=== PATIENT | female | born 1975 | race Caucasian/White ===

== ENCOUNTER 2018-01-25 09:30 | Outpatient (CLI) | payer BC | END 2018-01-25 09:31 | disposition home or self-care (01) | LOC: BICRAD 09:30 | PROVIDERS: ATTEND Family Medicine | DX: M25.552 Pain in left hip (principal); M25.562 Pain in left knee; R93.41 Abnormal radiologic findings on diagnostic imaging of renal pelvis, ureter, or bladder | CPT/HCPCS: 72170 ==

== ENCOUNTER 2018-05-04 23:39 | Inpatient (IN) | payer BC ==
[2018-05-05 00:23] LABS: #Eosinphils 0.1 thou/uL (0.0-0.7); #Lymphocytes 1.2 thou/uL (1.20-3.40); #Monocytes 0.5 thou/uL (0.11-0.59); #Neutrophils 7.2 thou/uL (1.40-6.50); %Basophils 0.3 % (0.0-1.0); %Eosinophils 1.1 % (0.0-10.0); %Lymphocytes 13.4 % (21.0-51.0); %Neutrophils 79.2 % (42.0-75.0); Hemoglobin 11.8 g/dL (12.0-16.0); Mean Corpuscular HGB CONC 32.5 g/dL (32.0-36.0); Mean Platelet Volume 10.7 fL (7.4-10.4); Platelet Count 171 thou/uL (130-400); RBC Distribution Width 15.5 % (11.5-14.5); Red Blood Cell (RBC) Count 4.36 mill/uL (4.20-5.40)
[2018-05-05 00:29] LABS: BHCG - Serum Negative (NEGATIVE); Pregs Control Background? CLEAR/WHITE (CLR/WHITE); Pregs Control Bar Appear? YES (CONTROL BAR)
[2018-05-05 00:41] LABS: ALT (SGPT) 9 U/L (8-55); AST (SGOT) 25 U/L (5-34); Albumin 3.7 g/dL (3.5-5.0); Alkaline Phosphatase 97 U/L (40-150); Anion Gap 17 mmol/L (10-20); BUN (Urea Nitrogen) 36 mg/dL (7.0-18.7); Bilirubin, Total 0.7 mg/dL (0.2-1.2); Calc. Creatinine Clearance 0 mL/min (70-130); Calcium 8.8 mg/dL (7.8-10.44); Carbon Dioxide 18 mmol/L (22-29); Chloride 101 mmol/L (98-107); Estimated GFR-MDRD 36; Globulin 3.1 g/dL (2.4-3.5); Glucose 128 mg/dL (70-105); Potassium 3.2 mmol/L (3.5-5.1); Protein, Total 6.8 g/dL (6.0-8.3); Sodium 133 mmol/L (136-145)
[2018-05-05 00:57] LABS: Thyroid Stimulating Hormone 1.4583 uIU/mL (0.35-4.94)
[2018-05-05 01:03] LABS: CKMB 11.2 ng/mL (0-6.6); Troponin I 0.525 ng/mL (< 0.028)
[2018-05-05] MEDS ORDERED: methylPREDNISolone Sod Succ/PF 125 MG/2 ML VIAL ONE (01:08)
[2018-05-05] MEDS ORDERED: Potassium Chloride 20 MEQ TAB ONE (01:08)
[2018-05-05] MEDS ORDERED: Enoxaparin Sodium 80 MG/0.8 ML SYRINGE ONE (01:08)
[2018-05-05 04:11] LABS: Troponin I 0.412 ng/mL (< 0.028)
[2018-05-05] MEDS ORDERED: Ondansetron HCl/PF 4 MG/2 ML Vial IVP PRN ×2 (04:30→05:13)
[2018-05-05] MEDS ORDERED: Acetaminophen 325 MG TAB PO PRN ×2 (04:30→05:13)
[2018-05-05] MEDS ORDERED: Ondansetron ODT 4 MG TAB SL PRN (04:30)
--- NOTE | 2018-05-05 04:36 | HP ---
PRIMARY CARE PHYSICIAN: Dr. Jorge Alberto Rosas. REASON FOR ADMISSION: Non-STEMI. HISTORY OF PRESENT ILLNESS: A 42-year-old female who has underlying history of ccfyoike-zl-ybcpkd mi tral regurgitation, chronic diastolic heart failure who came to emergency room with complaint of ches t pain and shortness of breath, which was started around 11:00 a.m. Patient woke up with chest disco mfort and shortness of breath. She was having nausea, vomiting, but denies any diarrhea. She denies any associated diaphoresis. She denies any lower extremity calf tenderness. She denies any chest p ain in relation with food, respiration. She denies any fever, chills, cough. She denies any constip ation, diarrhea, melena, or hematochezia. With these symptoms, she presented to emergency room. In the emergency room, she was relatively hypo tensive, hypoxic, tachycardic, and tachypneic. She was requiring nonrebreather oxygen. She had CT a ngiography, which was negative for pulmonary embolism. Her routine blood tests showed significantly elevated troponin and elevated BNP. EKG was negative for any ST elevation. Patient was given Loveno x 1 mg per kg, aspirin 324 mg. Patient was subsequently complaining in the emergency room with short ness of breath and that is why she was given Solu-Medrol and DuoNeb therapy. While patient's potassi um was low and that is why she was given potassium chloride. We are admitting this patient to teleme try floor. REVIEW OF SYSTEMS: Please see my HPI for pertinent positive and negative. All other review of syste ms reviewed and negative except as mentioned in the HPI: Constitutional: Weight loss or gain, abili ty to conduct usual activities. Skin: Rash, itching. Eyes: Double vision, pain. ENT/Mouth: Nose bleeding, neck stiffness, pain, tenderness. Cardiovascular: Palpitations, dyspnea on exertion, ort hopnea. Respiratory: Shortness of breath, wheezing, cough, hemoptysis, fever, or night sweats. Gas trointestinal: Poor appetite, abdominal pain, heartburn, nausea, vomiting, constipation, or diarrhea . Genitourinary: Urgency, frequency, dysuria, nocturia. Musculoskeletal: Pain, swelling. Neurolo gic/Psychiatric: Anxiety, depression. Allergy/Immunologic: Skin rash, bleeding tendency. ALLERGIES: CODEINE SULFATE. CURRENT HOME MEDICATIONS: Lisinopril 5 mg p.o. daily, Protonix 40 mg p.o. daily, Coreg 6.25 mg p.o. b.i.d., Prozac 40 mg p.o. daily. Suboxone 12/3 mg sublingual twice daily, Lyrica 200 mg 3 times milan y, Lasix 20 mg twice daily. PAST MEDICAL HISTORY: Chronic diastolic heart failure, qdwsdrfa-[id number] mitral regurgitation, hype rtension, peptic ulcer disease. PAST PSYCHIATRIC HISTORY: Anxiety, depression, bipolar disorder, history of inpatient psychiatric ad [facility] in 1999. PAST SURGICAL HISTORY: x2, tubal ligation, abdominal surgery for pyloric ulcer rupture. SOCIAL HISTORY: Patient has history of drug abuse in past. She smokes about 1 pack per day. She dr inks alcohol occasionally. Currently, she denies any illicit drug abuse. FAMILY HISTORY: Positive for coronary artery disease, diabetes among several family members. EMERGENCY ROOM COURSE: Patient is given Lovenox 1 mg per kg, Solu-Medrol 125 mg, aspirin 324 mg, pot assium chloride 40 mEq, DuoNeb therapy. PHYSICAL EXAMINATION: VITAL SIGNS: On arrival blood pressure 99/62, pulse 111, respiratory rate 22, temperature 97.4, satu ration 96% on nonrebreather, weight 84.8 kilograms. GENERAL: Patient is currently alert, awake, tachycardic, anxious. HEAD: Normocephalic, atraumatic. EYES: Pupils round, reactive to light. Extraocular muscle intact. ENT: Oropharynx within normal limits. Moist mucous membranes. No oral lesion, no pharyngeal erythe ma, no exudate. NECK: Supple. No JVD, no thyromegaly, no carotid bruit. LUNGS: Bilateral end expiratory wheezing heard, reduced air entry at bases. No obvious rales noted. CARDIAC: S1, S2 regular, tachycardia. Systolic murmur present at apex. ABDOMEN: Obesity present. Bowel sounds present, nontender, nondistended. No organomegaly, no mass, no suprapubic tenderness. BACK: Unremarkable. No CVA tenderness. EXTREMITIES: Upper extremity passive movement of all joints are normal. Lower extremities: Bilater al lower extremity edema noted. No calf tenderness. SKIN: No skin rash. HEMATOLOGICAL SYSTEM: No lymphadenopathy. PSYCHIATRIC: Anxious affect. NEUROLOGIC: Nonfocal examination. She moves all 4 limbs. Plantar bilateral flexor. SIGNIFICANT LABORATORY DATA: EKG showing sinus tachycardia, nonspecific ST-T changes. Chest x-ray s howing ground glass opacity in upper and lower lobes consistent with fibrosis/bronchiectasis. CBC: WBC 9.0, hemoglobin 11.8, platelet 171. D-dimer 1.26. BMP: Sodium 133, potassium 3.2, chlori de 101, carbon dioxide 18, BUN 36, creatinine 1.56, glucose 128, calcium 8.8. LFT: AST 25, ALT 9, a lkaline phosphatase is 97, albumin 3.7. test negative. TSH 1.45, CK-MB 11.2, troponin I 0 .525. BNP 876.2. ASSESSMENT AND PLAN: 1. Non-ST elevation myocardial infarction. 2. Acute on chronic diastolic congestive heart failure exacerbation. 3. Rugogeyu-zy-ytavqg mitral regurgitation based on previous echocardiography. 4. Tobacco abuse disorder. 5. Hypotension. 6. Acute respiratory failure with hypoxia. 7. Gastroesophageal reflux disease with a history of peptic ulcer disease. 8. Anxiety, depression, bipolar disorder. 9. History of polysubstance abuse. 10. Hyponatremia and hypokalemia. 11. Chronic kidney disease, stage 3. PLAN: 1. Full admission to telemetry floor. Monitor vitals. Blood pressure medication and Lasix as per h emodynamics. Cardiology will be consulted. We will obtain echocardiography. Patient is already giv en Lovenox 1 mg/kg in the emergency room. We will check urine drug screen. CT angiography was negat tyrell for PE. Patient does have low hyponatremia and hypokalemia, and that is why we will replace elec trolytes and will check magnesium level. We will monitor serial cardiac enzymes x3. Further decisio n and investigation will defer to Cardiology. 2. Deep venous thrombosis prophylaxis. Patient is already on Lovenox 1 mg per kg. 3. Gastrointestinal prophylaxis, Protonix 40 mg p.o. daily. CODE STATUS: Patient is FULL CODE. Patient does not have any surrogate decision maker. She makes h er own decision.
[2018-05-05 04:43] VITALS: BMI 29.9
[2018-05-05] MEDS ORDERED: Milk Of Magnesia 30 ML UDCUP PO PRN (05:13)
[2018-05-05] MEDS ORDERED: Zolpidem Tartrate 5 MG TAB PO PRN (05:13)
[2018-05-05] MEDS ORDERED: Loperamide HCl 2 MG CAP PO PRN (05:13)
[2018-05-05] MEDS ORDERED: Ondansetron ODT 4 MG TAB PO PRN (05:13)
[2018-05-05] MEDS ORDERED: Senokot 8.6 MG TAB PO PRN (05:13)
[2018-05-05] MEDS ORDERED: Mag-Al 1200 mg/1200 mg/30 ML UDCUP PO PRN (05:13)
[2018-05-05 06:25] LABS: Troponin I 0.289 ng/mL (< 0.028)
[2018-05-05] MEDS: Furosemide 20 MG/2 ML VIAL SLOW IVP SCH ×2 (06:35→15:03)
[2018-05-05] MEDS ORDERED: Furosemide 20 MG/2 ML VIAL SLOW IVP SCH (07:15)
[2018-05-05 07:23] LABS: Actual Bicarbonate (HCO3a) 23.6 mEq/L (22-28); O2 Tension (PaO2) 65.3 mmHg (80.0-100.0)
[2018-05-05 07:24] LABS: Calcium, Ionized 1.1 mmol/L (1.12-1.30); Puncture Site RRA
[2018-05-05] MEDS ORDERED: Nitroglycerin 2% Ointment 1 INCH/1 GM Packet ONE (07:36)
[2018-05-05] MEDS: Enoxaparin Sodium 80 MG/0.8 ML SYRINGE SC SCH ×2 (07:41→20:25)
[2018-05-05] MEDS: Aspirin 325 MG TAB PO SCH (07:41)
[2018-05-05] MEDS: Carvedilol 3.125 MG TAB PO SCH ×2 (07:42→20:24)
[2018-05-05] MEDS: Lisinopril 2.5 MG TAB PO SCH (07:43)
[2018-05-05] MEDS: FLUoxetine HCl 20 MG CAP PO SCH (07:43)
[2018-05-05] MEDS ORDERED: Nitroglycerin 2% Ointment 1 INCH/1 GM Packet TOP SCH (08:00)
[2018-05-05 08:01] LABS: Bilirubin Negative (Negative); Blood, Urine Trace (Negative); Clarity CLEAR (Clear); Glucose, Urine (Dipstick) Negative (Negative); Leukocyte Negative (Negative); Nitrite Negative (Negative); Protein, Urine (Dipstick) Negative (Neg-Trace); Specific Gravity, Urine 1.018 (1.002-1.036)
[2018-05-05 08:04] LABS: Bacteria/HPF None Seen HPF (None Seen); Hyaline Casts/LPF 0-3 HYALINE CAST LPF (0-3 Hyaline); RBC/HPF 0-3 HPF (0-3); Squamous Epithelial None Seen HPF (0-3); WBC/HPF None Seen HPF (0-3)
[2018-05-05 08:15] LABS: Amphetamine Not Detected (NotDetected); Barbiturates Screen Not Detected (NotDetected); Benzodiazepine Screen Not Detected (NotDetected); Cocaine Metabolite Screen Not Detected (NotDetected); Medtox Control Line Valid? VALID (VALID); Medtox Reader # READER 4; Methadone Not Detected (NotDetected); Methamphetamine Not Detected (NotDetected); Opiate Screen Not Detected (NotDetected); Oxycodone Screen Not Detected (NotDetected); Phencyclidine (PCP) Not Detected (NotDetected); THC/Cannabinoid Screen Not Detected (NotDetected); Tricyclic Screen Not Detected (NotDetected)
--- NOTE | 2018-05-05 10:23 | RAD ---
PORTABLE CHEST: Date: 05/05/18 HISTORY: Chest pain and shortness of breath. COMPARISON: 07/18/16. FINDINGS: Heart size appears borderline to slightly enlarged considering technique. Mild vascular engorgement i s noted. This would suggest an element of edema. IMPRESSION: Mild cardiomegaly with pulmonary vascular engorgement and slightly increased interstitial markings richards ggesting an element of edema. POS: MODESTA
[2018-05-05] MEDS ORDERED: ISOVUE-370 76%-LOCM 1 ML ONE (11:31)
--- NOTE | 2018-05-05 11:59 | CT ---
PRELIMINARY REPORT/[facility]/EMERGENCY AFTER HOURS PROCEDURE: EXAM: CT Angiography Chest With Intravenous Contrast CLINICAL HISTORY: 42 years old, female; Pain; Chest pain; Patient HX: F42 presents to ed C/O cp, SOB. Pt reports she wo ke up around 23: 00 w/ chest pain upon deep breath. Pt reports nausea and vomiting, denies diarrhea. Pt also C/O knee pain from fall x4 days [employer]. Pt reports HX of fibromyalgia, copd, chf, bipoolar depression. Pt reports she is not compliant w/ medications if she is feeling sick because it makes it worse. Pt reports she rarely takes her lyrica. Pt denies HX of pe or blood clots. TECHNIQUE: Axial computed tomographic angiography images of the chest with intravenous contrast using pulmonary embolism protocol. MIP reconstructed images were created and reviewed. COMPARISON: No relevant prior studies available. FINDINGS: Pulmonary arteries: No pulmonary embolism. Main pulmonary artery is enlarged, measuring 37 mm in maxi mal outer diameter at the level of the pulmonary artery bifurcation, compatible with pulmonary arteri al hypertension. Aorta: No acute findings. Lungs: Moderate bilateral upper and lower lobe groundglass opacities, without associated fibrosis or bronchiectasis. Pleural space: Normal. No significant effusion. No pneumothorax. Heart: Mild enlargement of the right atrial and right ventricular chambers, with straightening of the interventricular septum, compatible with elevated right heart pressures. Bones/joints: No acute fracture. No dislocation. Soft tissues: Normal. Lymph nodes: Several small lymph nodes within the mediastinum, likely reactive. Stomach and bowel: Surgical changes in the region of the gastroesophageal junction, possibly prior hi atal hernia repair. IMPRESSION: 1. No pulmonary embolism. 2. Moderate bilateral upper and lower lobe groundglass opacities, without associated fibrosis or bron chiectasis. Findings most compatible with multifocal pneumonitis, possibly from viral infection or po ssibly hypersensitivity pneumonitis. Recommend followup. 3. Incidental/non-acute findings are described above. Thank you for allowing us to participate in the care of your patient. Dictated and Authenticated by: Munir Wagner MD 05/05/2018 1:37 AM Central Time ([place] & [place]) FINAL REPORT CT ANGIO CHEST PERFORMED WITH IV CONTRAST ENHANCEMENT WITH 3D RECONSTRUCTIONS: Date: 05/05/18 HISTORY: Chest pain. Shortness of breath. COPD. History of CHF. FINDINGS: The lungs show a somewhat diffuse mosaic pattern with more of the ground-glass opacities being slight ly more central in location. There is no confluent infiltrative process. Small, vague area of nodular ity is seen in the right upper lobe measuring approximately 4.0 mm. There is no significant mediastinal or hilar adenopathy. Thoracic aorta is normal in caliber. Pulmonary arteries are dilated. There is good pulmonary artery o pacification. There is no CT evidence for pulmonary embolus. Visualized liver parenchyma shows no findings. Spleen appears slightly enlarged. It is incompletely v isualized. IMPRESSION: 1. Somewhat mosaic lung pattern which can have multiple etiologies. 2. Evidence of pulmonary artery hypertension. No evidence of pulmonary embolus. This report is in agreement with the preliminary report issued by [facility]. POS: NEELIMA
[2018-05-05] MEDS ORDERED: Potassium Chloride 20 MEQ TAB PO PRN (13:45)
--- NOTE | 2018-05-05 14:17 | PDOC.EVN ---
Event Note - Event Note Event Note: Patient was Not Toleratingf rebereathable mask, Now changed to Bipap. pt is transfered to IMCU, Pt is Alert and able to talk now. Called and updated Him about the paient in IMCU, Explained she will need Cardiology.
--- NOTE | 2018-05-05 14:28 | CON ---
DATE OF CONSULTATION: 05/05/2018 CONSULTING PHYSICIAN: Dr. Diego. REASON FOR CONSULTATION: [facility] admission. HISTORY OF PRESENT ILLNESS: Ms. Hopkins is a 42-year-old female, who was hospitalized last night wi th increasing shortness of breath and substernal chest pain. She acts as her own historian without l imitation. She says she has been short of breath for the last 2-3 days. She says she quit smoking a bout 2 weeks ago and that has helped her cough. She was placed on BiPAP for the shortness of breath. She was found to have elevated cardiac enzymes and has been diagnosed with non-Q-wave myocardial in [facility]. Results from echocardiogram is pending. She has diuresed with Lasix and says she is breat sanjeev better. PAST MEDICAL HISTORY: 1. Chronic diastolic heart failure. 2. Jehmqddw-et-gcsmpm mitral regurgitation. 3. Hypertension. 4. Peptic ulcer disease. PAST SURGICAL HISTORY: 1. . 2. Pyloric channel ulcer repair. PSYCHIATRIC HISTORY: Remarkable for anxiety, depression, bipolar disorder. SOCIAL HISTORY: One pack per day smoker, quit 2 weeks ago. Does not consume alcohol except on speci al occasions. Does not use illicit drugs. FAMILY MEDICAL HISTORY: Remarkable for coronary artery disease. MEDICATIONS: Prior to admission, she was taking ProAir metered-dose inhaler, lisinopril, Protonix, C oreg, Suboxone, Lyrica, Lasix. REVIEW OF SYSTEMS: Twelve-point review of systems, otherwise, negative. PHYSICAL EXAMINATION: VITAL SIGNS: Temperature 97.7, pulse 79, respirations 18, O2 sat 96% on BiPAP, blood pressure 100/57 . GENERAL: The patient is awake and alert. She has a strange affect when she is trying to communicate . HEENT EXAM: Unremarkable. NECK: No adenopathy or JVD. LUNGS: Inspiratory crackles both bases. No wheezing. CARDIAC: S1 and S2, regular. A 2/6 systolic murmur. ABDOMEN: Soft, nontender, nondistended. EXTREMITIES: No clubbing, cyanosis, or edema. LABORATORY DATA: Sodium 133, potassium 3.2, chloride 101, CO2 of 18, BUN 36, creatinine 1.5, glucose 128. BNP 876. Troponin 0.28. White blood cell count 9, hematocrit 36.2, platelet count 171. D-di marielle 1.26. Blood gas pH 7.40, pCO2 of 39, pO2 of 65. Chest x-ray shows cardiomegaly without mass, effusion, or infiltrate. CT of the chest showed no pulm onary emboli, but she did have bilateral faint infiltrates. ASSESSMENT: 1. Acute congestive heart failure - likely diastolic. 2. Acute hypoxic respiratory failure. 3. Past tobacco abuse. 4. Probable underlying chronic obstructive pulmonary disease. PLAN: 1. I agree with diuresis and p.r.n. BiPAP. 2. Cardiac consultation. 3. She is being anticoagulated due to her elevated troponin. 4. Potassium needs to be rechecked tonight and replaced if low.
[2018-05-05] MEDS: Buprenorphine 8mg/Naloxone 2mg per 1 FILM PO SCH ×2 (14:46→16:34)
[2018-05-05] MEDS: Atorvastatin Calcium 10 MG TAB PO SCH (20:24)
--- NOTE | 2018-05-06 01:40 | CON ---
DATE OF CONSULTATION: 05/06/2018 HISTORY OF PRESENT ILLNESS: Olimpia Hopkins is a 42-year-old white female who on echo in 2013, had iyhwlfsz-ky-lpgmwr mitral regurgitation and is labeled as having chronic diastolic heart failure, although I am not certain that she was seeing a crotch breaker here before. Over the last few days, she has had increased shortness of breath. She stopped smoking 1 week ago and this has not helped. She awoke around 11:00 a.m. yesterday morning with chest discomfort and shortness of breath. She stated that the pain was definitely pleuritic in nature and every time she tried to take a deep breath, she would have more chest pain. She came to the emergency room and was tachypneic, hypoxic, and hypotensive. She was given oxygen. She underwent CT angiography for pulmonary embolism, this was unremarkable. She had a mildly elevated troponin I and BNP and was started on Lovenox. She has been diuresed and states that her breathing has improved. PAST MEDICAL HISTORY: Hypertension, bipolar disorder, history of substance abuse, peptic ulcer disease. OPERATIONS: , tubal ligation, abdominal surgery for ruptured ulcer. MEDICATIONS: At home include albuterol 2 sprays b.i.d., BC powder one pack p.r.n., Suboxone sublingual b.i.d., carvedilol 6.25 b.i.d., lisinopril 5 mg daily, Protonix 40 daily, Lyrica 200 mg t.i.d. ALLERGIES: CODEINE. SOCIAL HISTORY: She smoked 1 pack a day, was apparently stopped 1 or 2 weeks ago. She occasionally drinks alcohol. She has had illicit drug use in the past , but her urine drug screen is negative at this time. FAMILY HISTORY: Positive for coronary artery disease. REVIEW OF SYSTEMS: Twelve-point review of systems is unremarkable. PHYSICAL EXAMINATION: VITAL SIGNS: Blood pressure 118/67, pulse of 108, sinus rhythm. HEENT: PERRL. NECK: Supple. LUNGS: Chest reveals expiratory wheezing. CARDIOVASCULAR: S1, S2 normal without any S3 or S4. There was a 1-2 holosystolic murmur at the apex. ABDOMEN: Obese. Normal bowel sounds without tenderness. EXTREMITIES: Revealed no clubbing, cyanosis, or edema. NEUROLOGIC: Grossly intact. SKIN: Warm and dry. LABORATORY DATA: EKG reveals sinus tachycardia, nonspecific T-wave changes. Hemoglobin 11.8, hematocrit 36.2, white count 9000, platelets 171,000. A pH of 7.40, pCO2 of 39.0, pO2 of 65.3. Sodium 133, potassium 3.2, chloride 101, carbon dioxide 18, BUN 36, creatinine 1.56. She has since received contrast for CTA after this lab. BNP 876.2 and troponin I 0.525. IMPRESSION: 1. Possible non-ST elevation myocardial infarction, although her pain was atypical in nature in that it was pleuritic. 2. Chronic obstructive pulmonary disease exacerbation. 3. Probable diastolic heart failure. 4. Renal insufficiency. 5. Hypertension. 6. Smoker until 1 week ago. 7. Positive family history. 8. History of peptic ulcer disease. 9. History of polysubstance abuse, although urine drug screen was negative on this admission. 10. Bipolar disorder. 11. Moderate MR in the past. PLAN: Echocardiogram has been performed but due to malfunction of the computer , cannot be read at this time. Her creatinine needs to be followed closely especially with contrast and ongoing diuresis. Once her breathing improved, consideration may need to be given to cardiac catheterization. It is of note that she states she was going to leave AMA, which she has done in the past. She took off the BiPAP, was getting up, getting ready to leave, and could not breathe and so did decide to stay; however, it is uncertain how long she will stay for evaluation. DOLORES
[2018-05-06 04:34] LABS: #Lymphocytes 0.8 thou/uL (1.20-3.40); #Monocytes 0.6 thou/uL (0.11-0.59); #Neutrophils 9.4 thou/uL (1.40-6.50); %Basophils 0.2 % (0.0-1.0); %Eosinophils 0.1 % (0.0-10.0); %Lymphocytes 7.5 % (21.0-51.0); %Monocytes 5.4 % (0.0-10.0); %Neutrophils 86.8 % (42.0-75.0); Hemoglobin 11.1 g/dL (12.0-16.0); Mean Corpuscular HGB CONC 32.9 g/dL (32.0-36.0); Mean Corpuscular Hemoglobin 27.2 pg (27.0-31.0); Mean Corpuscular Volume 82.8 fl (81.0-99.0); Mean Platelet Volume 10.9 fL (7.4-10.4); Platelet Count 154 thou/uL (130-400); RBC Distribution Width 15.8 % (11.5-14.5); Red Blood Cell (RBC) Count 4.07 mill/uL (4.20-5.40); White Blood Cell (WBC) Count 10.8 thou/uL (4.8-10.8)
[2018-05-06 04:48] LABS: ALT (SGPT) 7 U/L (8-55); AST (SGOT) 8 U/L (5-34); Albumin 3.5 g/dL (3.5-5.0); Alkaline Phosphatase 80 U/L (40-150); Anion Gap 14 mmol/L (10-20); BUN (Urea Nitrogen) 23 mg/dL (7.0-18.7); Bilirubin, Total 0.6 mg/dL (0.2-1.2); Calc. Creatinine Clearance 87 mL/min (70-130); Calcium 9.1 mg/dL (7.8-10.44); Carbon Dioxide 26 mmol/L (22-29); Cardiac Risk 5.4 (Less than 4.5); Chloride 99 mmol/L (98-107); Cholesterol 150 mg/dl (< 200 Desired); Estimated GFR-MDRD 53; Globulin 2.9 g/dL (2.4-3.5); Glucose 206 mg/dL (70-105); HDL Cholesterol 28 mg/dL (>60 Neg Risk); LDL Cholesterol, Calculated 94 mg/dL; Magnesium 1.8 mg/dL (1.6-2.6); Potassium 4.1 mmol/L (3.5-5.1); Protein, Total 6.4 g/dL (6.0-8.3); Sodium 135 mmol/L (136-145); Triglycerides 138 mg/dL (Less than 150); Uric Acid 6.6 mg/dL (2.6-6.0)
[2018-05-06] MEDS: Furosemide 20 MG/2 ML VIAL SLOW IVP SCH ×2 (05:51→14:24)
[2018-05-06] MEDS: Aspirin 325 MG TAB PO SCH (08:55)
[2018-05-06] MEDS: Carvedilol 3.125 MG TAB PO SCH ×2 (08:55→21:06)
[2018-05-06] MEDS: Lisinopril 2.5 MG TAB PO SCH (08:56)
[2018-05-06] MEDS: Enoxaparin Sodium 80 MG/0.8 ML SYRINGE SC SCH (08:56)
[2018-05-06] MEDS: FLUoxetine HCl 20 MG CAP PO SCH (08:56)
--- NOTE | 2018-05-06 09:06 | PRG ---
DATE OF SERVICE: 05/06/2018 The patient is doing better. She wants to be moved out of telemetry so her 12-year-old daughter can visit her. PHYSICAL EXAMINATION: VITAL SIGNS: On exam temperature is 98.8, pulse 86, respiration 16, O2 sat 94% on 4 liters, blood pr essure 108/61. HEENT: Unremarkable. NECK: No JVD. LUNGS: Clear without wheezing. She has few crackles in the bases. CARDIAC: S1 and S2 regular. ABDOMEN: Soft. EXTREMITIES: No edema. LABORATORY DATA: White blood cell count 10.8, hematocrit 33.7, platelet count 154. Sodium 135, pota ssium 4.1, chloride 99, CO2 26, BUN 23, creatinine 1.1, glucose 206. ASSESSMENT: 1. Acute congestive heart failure - likely diastolic. 2. Underlying chronic obstructive pulmonary disease. 3. Acute hypoxic respiratory failure. PLAN: 1. She can be moved out to the floor. 2. She will continue on nebulization treatments. 3. She should not need the BiPAP any longer. We will follow.
--- NOTE | 2018-05-06 10:31 | PDOC.PN ---
- Subjective Encounter Start Date: 05/06/18 Encounter Start Time: 08:30 Subjective: no chest pain or palp -: sob is better - Objective Resuscitation Status: Resuscitation Status FULL:Full Resuscitation MAR Reviewed: Yes Vital Signs & Weight: Vital Signs (12 hours) Temp Pulse Resp BP Pulse Ox 05/06/18 08:56 86 05/06/18 07:53 98.8 F 86 16 94 L 05/06/18 07:32 98.8 F 86 16 108/61 91 L 05/06/18 03:58 98.0 F 102 H 25 H 99/61 95 05/06/18 02:15 93 L 05/05/18 23:51 97.6 F 82 20 117/71 93 L Weight Weight 185 lb 6.4 oz I&O: 05/05/18 05/06/18 05/07/18 06:59 06:59 06:59 Intake Total 0 1220 Output Total 0 3175 Balance 0 -1955 Result Diagrams: 05/06/18 03:33 05/06/18 03:33 Phys Exam - Physical Examination HEENT: PERRLA, moist MMs Neck: no JVD, supple Respiratory: no rales, wheezing present Cardiovascular: RRR, no significant murmur Gastrointestinal: soft, non-tender, positive bowel sounds Musculoskeletal: no edema, pulses present Neurological: non-focal, moves all 4 limbs Psychiatric: A&O x 3 Dx/Plan (1) Acute exacerbation of CHF (congestive heart failure) Code(s): I50.9 - HEART FAILURE, UNSPECIFIED Status: Acute Qualifiers: Heart failure type: unspecified Qualified Code(s): I50.9 - Heart failure, unspecified (2) Demand ischemia of myocardium Code(s): I24.8 - OTHER FORMS OF ACUTE ISCHEMIC HEART DISEASE Status: Acute (3) Acute respiratory failure with hypoxia Code(s): J96.01 - ACUTE RESPIRATORY FAILURE WITH HYPOXIA Status: Acute (4) Mood disorder Code(s): F39 - UNSPECIFIED MOOD [AFFECTIVE] DISORDER Status: Chronic (5) on suboxone maintenance treatment Status: Chronic (6) Hypertension Code(s): I10 - ESSENTIAL (PRIMARY) HYPERTENSION Status: Chronic Qualifiers: Hypertension type: essential hypertension Qualified Code(s): I10 - Essential (primary) hypertension - Plan dc lovenox full dose -: for cath likely in am -: is off bipap now, feels better -: on asp, lipitor, coreg and iv lasix -: renal function is stable with creatinine around 1.1 this am * . Review of Systems - Medications/Allergies Allergies/Adverse Reactions: Allergies Allergy/AdvReac Type Severity Reaction Status Date / Time codeine Allergy Hives Verified 05/05/18 04:47 Medications: Current Medications Acetaminophen (Tylenol) 650 mg PO Q4H PRN PRN Reason: Headache/Fever or Pain Al Hydroxide/Mg Hydroxide (Maalox) 30 ml PO Q6H PRN PRN Reason: Heartburn or Indigestion Albuterol/Ipratropium (Duoneb) 3 ml NEB [id number] PRN PRN Reason: Dyspnea/Wheezing/SOB Aspirin (Aspirin) 325 mg PO DAILY [facility] Last Admin: 05/06/18 08:55 Dose: 325 mg Atorvastatin Calcium (Lipitor) 10 mg PO HS [facility] Last Admin: 05/05/18 20:24 Dose: 10 mg Buprenorphine/Naloxone (Suboxone) 1 film PO DAILY [facility] Last Admin: 05/05/18 16:34 Dose: 1 film Carvedilol (Coreg) 3.125 mg PO BID [facility] Last Admin: 05/06/18 08:55 Dose: 3.125 mg Enoxaparin Sodium (Lovenox) 80 mg SC 0900,2100 [facility] Last Admin: 05/06/18 08:56 Dose: 80 mg Fluoxetine HCl (Prozac) 40 mg PO DAILY [facility] Last Admin: 05/06/18 08:56 Dose: 40 mg Furosemide (Lasix) 20 mg SLOW IVP 0600,1400 [facility] Last Admin: 05/06/18 05:51 Dose: 20 mg Lisinopril (Zestril) 2.5 mg PO DAILY [facility] Last Admin: 05/06/18 08:56 Dose: 2.5 mg Loperamide HCl (Imodium) 2 mg PO PRN PRN PRN Reason: Diarrhea/Loose Stools Magnesium Hydroxide (Milk Of Magnesium) 30 ml PO DAILYPRN PRN PRN Reason: Constipation Ondansetron HCl (Zofran Odt) 4 mg PO Q6H PRN PRN Reason: Nausea/Vomiting Ondansetron HCl (Zofran) 4 mg IVP Q6H PRN PRN Reason: Nausea/Vomiting Pantoprazole Sodium (Protonix) 40 mg PO DAILY [facility] Last Admin: 05/06/18 08:56 Dose: 40 mg Senna (Senokot) 2 tab PO HSPRN PRN PRN Reason: Constipation Sodium Chloride (Flush - Normal Saline) 10 ml IVF Q12HR [facility] Last Admin: 05/06/18 08:56 Dose: 10 ml Sodium Chloride (Flush - Normal Saline) 10 ml IVF PRN PRN PRN Reason: Saline Flush Last Admin: 05/05/18 06:36 Dose: 10 ml Zolpidem Tartrate (Ambien) 5 mg PO HSPRN PRN PRN Reason: Insomnia
[2018-05-06] MEDS: Buprenorphine 8mg/Naloxone 2mg per 1 FILM PO SCH (11:45)
[2018-05-06] MEDS ORDERED: Enoxaparin Sodium 40 MG/0.4 ML SYRINGE SC SCH (21:00)
[2018-05-06] MEDS: Atorvastatin Calcium 10 MG TAB PO SCH (21:06)
[2018-05-07 05:52] LABS: Anion Gap 12 mmol/L (10-20); BUN (Urea Nitrogen) 20 mg/dL (7.0-18.7); Calc. Creatinine Clearance 113 mL/min (70-130); Calcium 9.1 mg/dL (7.8-10.44); Carbon Dioxide 29 mmol/L (22-29); Chloride 101 mmol/L (98-107); Estimated GFR-MDRD 72; Glucose 98 mg/dL (70-105); Potassium 4.1 mmol/L (3.5-5.1); Sodium 138 mmol/L (136-145)
[2018-05-07] MEDS: Furosemide 20 MG/2 ML VIAL SLOW IVP SCH ×2 (06:11→13:02)
--- NOTE | 2018-05-07 08:55 | PRG ---
DATE OF SERVICE: 05/07/2018 The patient is feeling better. She had no acute complaints. PHYSICAL EXAMINATION: VITAL SIGNS: Temperature 98.9, pulse 73, respirations 17, O2 sat 96% on 4 liters, blood pressure 111 /73. HEENT: Unremarkable. NECK: No JVD. LUNGS: Coarse breath sounds. CARDIAC: S1 and S2 regular. ABDOMEN: Soft. EXTREMITIES: No edema. LABORATORY DATA: Sodium 138, potassium 4.1, chloride 101, CO2 of 29, BUN 20, creatinine 0.8, glucose 98. ASSESSMENT: 1. Chronic obstructive pulmonary disease with exacerbation. 2. Diastolic cardiac dysfunction. 3. Acute hypoxic respiratory failure. PLAN: The patient needs to increase activity. Continue diuresis and nebulization treatments. She s hould be ready to go home soon.
[2018-05-07 09:49] VITALS: TEMP 98.7
[2018-05-07] MEDS: FLUoxetine HCl 20 MG CAP PO SCH (09:53)
[2018-05-07] MEDS: Carvedilol 3.125 MG TAB PO SCH (09:54)
[2018-05-07] MEDS: Aspirin 325 MG TAB PO SCH (09:54)
[2018-05-07] MEDS: Lisinopril 2.5 MG TAB PO SCH (10:04)
--- NOTE | 2018-05-07 11:21 | PQF ---
CLINICAL DOCUMENTATION IMPROVEMENT CLARIFICATION FORM: ICD-10 Updated PLEASE DO AN ADDENDUM TO THE PROGRESS NOTE WITH ANY DOCUMENTATION UPDATES OR ADDITIONS AND CARRY THROUGH TO DC SUMMARY. THANK YOU. DATE: 05/07 ATTN: DR. Sha NIX Please exercise your independent, professional judgment in responding to the clarification form. Clinical indicators are provided on the bottom of this form for your review. Please check appropriate box(s): AMI TYPE: [ ] NSTEMI [ ] AMI Type II [ x] Demand Ischemia [ ] Other diagnosis [ ] Unable to determine CLINICAL INDICATORS - SIGNS / SYMPTOMS / LABS ER PRESENTATION 05/05: PRESENTS FOR CP & SOB; TACHYCARDIAC; 2+ PITTING EDEMA TO B LE; EKG W/ST ELEVATION IN LEAD III ER PHYSICIAN DIAGNOSIS: NSTEMI, CHF EXACERBATION, COPD EXACERBATION PHYSICIAN H&P DOCUMENTATION 05/05: ASSESSMENT & PLAN: 1) NSTEMI; 2) A/C DIASTOLIC CHF EXACERBATION; 6) ACUTE HYPOXIC RESPIRATORY FAILURE CARDIOLOGY CONSULT 05/05: HX OF PRESENT ILLNESS: ...SHE HAD A MILDLY ELEVATED TROPONIN I & BNP & WAS STARTED ON LOVENOX. ASSESSMENT/PLAN: 1) POSSIBLE NSTEMI, ALTHOUGH HER PAIN WAS ATYPICAL IN NATURE IN THAT IT WAS PLEURITIC ATTENDING PN 05/06: DX/PLAN: 2) DEMAND ISCHEMIA OF MYOCARDIUM, ACUTE TROPONIN I: 0.525, 0.412, 0.289 (ON ADMIT, 05/05) RISKS: TOBACCO ABUSE A/C DIASTOLIC CHF ACUTE HYPOXIC RESPIRATORY FAILURE HTN TREATMENTS: CARDIOLOGY CONSULT (05/05) SUPPLEMENTAL OXYGEN (BIPAP WEANED TO NC) IV LASIX (05/05 - PRESENT) TELEMETRY MONITORING (05/05 - PRESENT) THANK YOU! Mamta (This form is maintained as a part of the permanent medical record) 2014 [email or web address]. All Rights Reserved Mamta Mackey RN, BSN [email or web address] Office: [phone] [facility]
--- NOTE | 2018-05-07 11:25 | PDOC.PN ---
- Subjective Encounter Start Date: 05/07/18 Encounter Start Time: 09:00 Subjective: no sob or palp -: breathing better -: is going for stress test 2nd portion this am - Objective Resuscitation Status: Resuscitation Status FULL:Full Resuscitation MAR Reviewed: Yes Vital Signs & Weight: Vital Signs (12 hours) Temp Pulse Resp BP Pulse Ox 05/07/18 09:50 18 93 L 05/07/18 09:49 98.7 F 74 22 H 102/65 71 L 05/07/18 03:33 98.9 F 73 17 111/73 96 05/07/18 02:00 94 L 05/07/18 00:00 97.4 F L 72 18 162/86 H 96 Weight Admit Weight 186 lb Weight 181 lb 8 oz I&O: 05/06/18 05/07/18 05/08/18 06:59 06:59 06:59 Intake Total 1220 480 Output Total 3175 500 Balance -1954 Result Diagrams: 05/06/18 03:33 05/07/18 05:13 Phys Exam - Physical Examination HEENT: PERRLA, moist MMs Neck: no JVD, supple Respiratory: no wheezing, no rales Cardiovascular: RRR, no significant murmur Gastrointestinal: soft, non-tender, positive bowel sounds Musculoskeletal: no edema, pulses present Neurological: non-focal, moves all 4 limbs Psychiatric: normal affect, A&O x 3 Dx/Plan (1) Acute exacerbation of CHF (congestive heart failure) Code(s): I50.9 - HEART FAILURE, UNSPECIFIED Status: Acute Qualifiers: Heart failure type: unspecified Qualified Code(s): I50.9 - Heart failure, unspecified (2) Demand ischemia of myocardium Code(s): I24.8 - OTHER FORMS OF ACUTE ISCHEMIC HEART DISEASE Status: Acute (3) Acute respiratory failure with hypoxia Code(s): J96.01 - ACUTE RESPIRATORY FAILURE WITH HYPOXIA Status: Resolved (4) Mood disorder Code(s): F39 - UNSPECIFIED MOOD [AFFECTIVE] DISORDER Status: Chronic (5) on suboxone maintenance treatment Status: Chronic (6) Hypertension Code(s): I10 - ESSENTIAL (PRIMARY) HYPERTENSION Status: Chronic Qualifiers: Hypertension type: essential hypertension Qualified Code(s): I10 - Essential (primary) hypertension - Plan await stress test results -: on asp, lipitor, coreg and lisinopril -: to amb as tolerated -: dc plan per cardio advice * .
[2018-05-07] MEDS: Buprenorphine 8mg/Naloxone 2mg per 1 FILM PO SCH (11:31)
--- NOTE | 2018-05-07 11:34 | PQF ---
CLINICAL DOCUMENTATION IMPROVEMENT CLARIFICATION FORM: ICD-10 Updated PLEASE DO AN ADDENDUM TO THE PROGRESS NOTE WITH ANY DOCUMENTATION UPDATES OR ADDITIONS AND CARRY THROUGH TO DC SUMMARY. THANK YOU. DATE: 05/07 ATTN: DR. Sha NIX Please exercise your independent, professional judgment in responding to the clarification form. Clinical indicators are provided on the bottom of this form for your review. Please check appropriate box(s): [ x ] Acute Renal Failure (ARF) / Acute Kidney Injury (AMY) [ ] Other Etiology or underlying conditions related to the diagnosis of ARF / AMY: [ ] Acute on Chronic Renal Failure please specify Stage of CKD ( see below) [ ] CKD without ARF/AMY please specify Stage of CKD [ ] Other diagnosis [ ] Unable to determine National Kidney Foundation Guidelines for CKD Staging Stage I Kidney damage with normal or increased GFR GFR > 90 Stage II Kidney damage with mildly decreased GFR GFR 60-89 Stage III Kidney damage with moderately decreased GFR GFR 30-59 Stage IV Kidney damage with severely decreased GFR GFR 16-29 Stage V Kidney failure GFR<15 ESRD End Stage Renal Disease On dialysis For continuity of documentation, please document condition throughout progress notes and discharge summary. Thank You. CLINICAL INDICATORS - SIGNS / SYMPTOMS / LABS BUN: 36 CR: 1.56 GFR: 36 (ADMIT, 05/05) 23 1.12 53 (05/06) 20 0.86 72 (05/07) RISK FACTORS: HTN CKD 3 HOME DIURETIC USE (LASIX BID) IV DIURETIC (LASIX 05/05 - PRESENT) TREATMENT: SERIAL BASMET FOR BUN/CR MONITORING THANK YOU! Maureen (This form is maintained as a part of the permanent medical record) 2014 [employer]. All Rights Reserved Mamta Mackey RN, BSN [email or web address] Office: [phone] [facility]ITAL[facility]
--- NOTE | 2018-05-07 14:41 | RAD ---
FOUR VIEWS RIGHT KNEE: Date: 05-07-18 History: Injury to right knee after a fall. FINDINGS: There is tricompartment osteophytosis involving the medial joint compartment. There is minimal narrow ing of the medial joint compartment. No fracture or dislocation is seen. No other osseous abnormality . IMPRESSION: Mild osteoarthritis without evidence of acute osseous abnormality involving the right knee. POS: [facility]
--- NOTE | 2018-05-07 14:43 | RAD ---
FOUR VIEWS LEFT KNEE: Date: 05-07-18 History: Left knee injury after a fall. FINDINGS: Mild osteophytes involving the medial joint compartment. No significant joint space narrowing is seen . There is no fracture or dislocation involving the left knee. IMPRESSION: No acute osseous abnormality left knee. POS: [facility]
[2018-05-07 17:20] VITALS: BP 121/71
--- NOTE | 2018-05-08 09:45 | NM ---
CARDIAC SPECT: CLINICAL HISTORY: 42-year-old female with chest pain. TECHNIQUE: A rest only myocardial perfusion scan was performed following the intravenous administration of 31 mC i technetium-99m sestamibi. The patient left AMA and the stress study was not performed. FINDINGS: Homogeneous tracer distribution is seen in the myocardial segments on the rest images. IMPRESSION: Normal myocardial perfusion at rest. POS: [facility]
== END 2018-05-07 17:22 | disposition left against medical advice (07) | DRG 291 ==
LOC: ERS 23:39 → 2NO 05-05 03:39 → IMCU/EMU 05-05 07:59 → 2NO 05-06 12:31
PROVIDERS: ADMIT Internal Medicine; ATTEND Internal Medicine
DX: I13.0 Hypertensive heart and chronic kidney disease with heart failure and stage 1 through stage 4 chronic kidney disease, or unspecified chronic kidney disease (principal); I50.33 Acute on chronic diastolic (congestive) heart failure; J96.01 Acute respiratory failure with hypoxia; E87.1 Hypo-osmolality and hyponatremia; J44.1 Chronic obstructive pulmonary disease with (acute) exacerbation; N17.9 Acute kidney failure, unspecified; E87.6 Hypokalemia; I24.8 Other forms of acute ischemic heart disease; I34.0 Nonrheumatic mitral (valve) insufficiency; N18.3 Chronic kidney disease, stage 3 (moderate); K21.9 Gastro-esophageal reflux disease without esophagitis; F31.9 Bipolar disorder, unspecified; F17.210 Nicotine dependence, cigarettes, uncomplicated; Z87.11 Personal history of peptic ulcer disease; Z88.5 Allergy status to narcotic agent
CPT/HCPCS: 36415; 71045; 71275; 78451; 80048; 80053; 80061; 80306; 81001; 82553; 82805; 83735; 83880; 84443; 84484; 84550; 84703; 85025; 85379; 93005; 93306; 93798; 94640; 94660; 94760; 96372; 96374; 99406; A4216; A9500; J1650; J1940; J2930; J7620; Q0162

== ENCOUNTER 2018-05-30 13:56 | Inpatient (IN) | payer BC ==
[2018-05-30 14:31] LABS: #Lymphocytes 0.7 thou/uL (1.20-3.40); #Monocytes 0.5 thou/uL (0.11-0.59); #Neutrophils 4.9 thou/uL (1.40-6.50); %Basophils 0.5 % (0.0-1.0); %Eosinophils 0.4 % (0.0-10.0); %Lymphocytes 11.8 % (21.0-51.0); %Monocytes 8.6 % (0.0-10.0); %Neutrophils 78.7 % (42.0-75.0); Hemoglobin 11.5 g/dL (12.0-16.0); Mean Corpuscular HGB CONC 32.5 g/dL (32.0-36.0); Mean Corpuscular Hemoglobin 26.7 pg (27.0-31.0); Mean Corpuscular Volume 82.3 fL (78.0-98.0); Mean Platelet Volume 10.3 fL (7.4-10.4); Platelet Count 164 thou/uL (130-400); RBC Distribution Width 17.4 % (11.5-14.5); Red Blood Cell (RBC) Count 4.31 mill/uL (4.20-5.40); White Blood Cell (WBC) Count 6.2 thou/uL (4.8-10.8)
[2018-05-30 14:44] LABS: INR-International Normal Ratio 1.6; PTT 35.4 SEC (22.9-36.1); Prothrombin Time 19.4 SEC (12.0-14.7)
[2018-05-30 14:52] LABS: Bilirubin Small (Negative); Blood, Urine Large (Negative); Clarity CLOUDY (Clear); Glucose, Urine (Dipstick) Negative (Negative); Leukocyte Trace (Negative); Nitrite Negative (Negative); Protein, Urine (Dipstick) 100 mg/dL (Neg-Trace); Specific Gravity, Urine 1.023 (1.002-1.036); Urobilinogen 0.2 mg/dL (0.2-1.0)
[2018-05-30 14:56] LABS: Bacteria/HPF None Seen HPF (None Seen); Squamous Epithelial 0-3 HPF (0-3)
[2018-05-30 14:58] LABS: ALT (SGPT) 66 U/L (8-55); AST (SGOT) 239 U/L (5-34); Albumin 3.7 g/dL (3.5-5.0); Alkaline Phosphatase 120 U/L (40-150); Anion Gap 21 mmol/L (10-20); BUN (Urea Nitrogen) 57 mg/dL (7.0-18.7); Bilirubin, Total 0.3 mg/dL (0.2-1.2); Calc. Creatinine Clearance 0 mL/min (70-130); Calcium 8.6 mg/dL (7.8-10.44); Carbon Dioxide 14 mmol/L (22-29); Chloride 103 mmol/L (98-107); Estimated GFR-MDRD 8; Globulin 2.7 g/dL (2.4-3.5); Glucose 130 mg/dL (70-105); Potassium 3.7 mmol/L (3.5-5.1); Protein, Total 6.4 g/dL (6.0-8.3); Sodium 134 mmol/L (136-145)
[2018-05-30 15:01] LABS: Pathc Cast-AUWi Flag 3.48 (0-2.49)
[2018-05-30 15:01] LABS: Troponin I 0.019 ng/mL (< 0.028)
[2018-05-30 15:04] LABS: Amphetamine Not Detected (NotDetected); Barbiturates Screen Not Detected (NotDetected); Benzodiazepine Screen Not Detected (NotDetected); Cocaine Metabolite Screen Not Detected (NotDetected); Medtox Control Line Valid? VALID (VALID); Medtox Reader # READER 1; Methadone Not Detected (NotDetected); Methamphetamine Not Detected (NotDetected); Opiate Screen Not Detected (NotDetected); Oxycodone Screen Not Detected (NotDetected); Phencyclidine (PCP) Not Detected (NotDetected); THC/Cannabinoid Screen Not Detected (NotDetected); Tricyclic Screen Not Detected (NotDetected)
[2018-05-30] MEDS ORDERED: Piperacillin/Tazobactam 4.5 GM VIAL ONE (15:04)
[2018-05-30 15:05] LABS: Hyaline Casts/LPF 0-3 HYALINE CAST LPF (0-3 Hyaline); Other Casts/LPF 0-3 COARSE GRAN LPF (0-3 Hyaline)
[2018-05-30 15:06] LABS: Crystals/HPF 2+ AMORPH URATES HPF (Negative); RBC/HPF 0-3 HPF (0-3)
[2018-05-30 15:23] LABS: CK (CPK) 9148 U/L (29-168); CKMB 326.2 ng/mL (0-6.6)
[2018-05-30 15:28] LABS: Actual Bicarbonate (HCO3a) 12.7 mEq/L (22-28); Base Excess (BEa) -13.4 mEq/L (-2.0 to +3.0); Hematocrit-ABG 28.9 % (36.0-47.0); Hemoglobin (Hb) 8.9 g/dL (12.0-16.0); O2 Tension (PaO2) 87.9 mmHg (80.0-100.0); pH, Arterial 7.25 (7.35-7.45)
[2018-05-30 15:29] LABS: Analyzer IN Cardio ER; Calcium, Ionized 1.1 mmol/L (1.12-1.30); Puncture Site L.R.
[2018-05-30] MEDS ORDERED: Piperacillin/Tazobactam 4.5 GM in Sodium Chloride 0.9% 100 ML IVPB SCH (15:30)
[2018-05-30] MEDS ORDERED: Succinylcholine Chloride 20 MG/ML 10 ml SYRINGE FS ONE (15:42)
[2018-05-30] MEDS ORDERED: EPINEPHrine 1 MG/10 ML Abboject SYRINGE ONE (15:43)
--- NOTE | 2018-05-30 15:45 | RAD ---
PORTABLE CHEST ONE VIEW: Date: 05-30-18 Time: 2:37 p.m. History: Syncope, dyspnea. FINDINGS/IMPRESSION: Comparison is made with exam of 05-05-18. The heart size is borderline. There is mild patchy infiltrate in the right lower lung. No pneumothora x, wojciech pulmonary edema, or large effusions are seen. POS: [facility]
[2018-05-30] MEDS ORDERED: HumaLOG 300 UNITS/3 ML VIAL SC PRN (16:20)
[2018-05-30] MEDS ORDERED: Piperacillin/Tazobactam 3.375 GM in Sodium Chloride 0.9% 100 ML IVPB SCH ×2 (16:45→18:00)
--- NOTE | 2018-05-30 16:48 | RAD ---
PORTABLE UPRIGHT CHEST ONE VIEW: 05/30/18 HISTORY: 43-year-old female with history of central line placement, followup dyspnea and multiple syncopal epi sodes. Monitor leads overlie the chest. Right jugular venous catheter in place with the tip in the superior vena cava. No pneumothorax. There is bilateral vascular congestion and interstitial and alveolar pare nchymal changes bilaterally progressive from the prior study raising concern for either that of bilat eral pneumonia or worsening pulmonary edema. IMPRESSION: Right jugular venous catheter in place without pneumothorax or other complication. Worsening bilatera l interstitial and alveolar parenchymal changes, evidence for worsening bilateral edema versus extens tyrell bilateral pneumonia. POS: [facility]
[2018-05-30 17:10] LABS: Anion Gap 16 mmol/L (10-20); BUN (Urea Nitrogen) 51 mg/dL (7.0-18.7); Calc. Creatinine Clearance 0 mL/min (70-130); Calcium 7.2 mg/dL (7.8-10.44); Carbon Dioxide 14 mmol/L (22-29); Chloride 108 mmol/L (98-107); Estimated GFR-MDRD 9; Glucose 104 mg/dL (70-105); Potassium 3.9 mmol/L (3.5-5.1); Sodium 134 mmol/L (136-145)
[2018-05-30 18:06] LABS: Troponin I 0.029 ng/mL (< 0.028)
[2018-05-30 18:20] LABS: HBSAg Index 0.19 S/CO (0-0.99); Hep B Core Total Ab Non-Reactive (NonReactive); Hep B Core Total Index 0.13 S/CO (0-0.79); Hep B Surf AB Non-Reactive (NonReactive); Hep B Surf Ag Non-Reactive S/CO (NonReactive); Hep C IgG Ab Non-Reactive (NonReactive); Hep C Index 0.51 S/CO (0-0.79)
[2018-05-30] MEDS: Sodium Chloride 0.9% 1,000 ML IV SCH (18:23)
[2018-05-30] MEDS ORDERED: Pantoprazole 40 MG VIAL IVP SCH (19:15)
[2018-05-30 19:27] LABS: HBSAB Concentration 0.16 mIU/mL; HBSAg Index 0.14 S/CO (0-0.99); Hep B Surf AB Non-Reactive (NonReactive); Hep B Surf Ag Non-Reactive S/CO (NonReactive)
[2018-05-30] MEDS: Heparin 5,000 UNITS/ML VIAL SC SCH (21:20)
[2018-05-30] MEDS: Buprenorphine 8mg/Naloxone 2mg per 1 FILM SL SCH (21:21)
[2018-05-30 21:33] LABS: Troponin I 0.041 ng/mL (< 0.028)
[2018-05-30] MEDS: Piperacillin/Tazobactam 2.25 GM in Sodium Chloride 0.9% 100 ML IVPB SCH (21:33)
[2018-05-30] MEDS: Norepinephrine 8 MG/0.9% NS 250 ML IVPB PRN (22:23)
[2018-05-31 00:03] LABS: Troponin I 0.045 ng/mL (< 0.028)
[2018-05-31] MEDS: Sodium Chloride 0.9% 1,000 ML IV SCH (00:23)
--- NOTE | 2018-05-31 00:50 | OP ---
PREOPERATIVE DIAGNOSES: Acute renal failure, fluid overload, dyspnea, hyperkalemia, need acute dialy sis access. POSTOPERATIVE DIAGNOSES: Acute renal failure, fluid overload, dyspnea, hyperkalemia, need acute dial ysis access. PROCEDURE: Placement of right femoral vein, Trialysis catheter. SURGEON: Coy Reece MD ANESTHESIA: 1% Xylocaine. PROCEDURE IN DETAIL: The patient is at the bedside, right groin was prepped with ChloraPrep, draped in routine fashion. Local anesthetic infiltrated into the skin and subcutaneous tissue about the ope rative site. Trocar catheter cannulated the femoral vein. J-wire threaded. Trocar catheter was rem nessa. Skin incised and enlarged sharply. Smaller and medium sized dilators placed over the J-wire i nto femoral vein and removed. Distal port of Trialysis catheter placed into femoral vein and secured with 3-0 nylon suture and J-wire removed. Each port aspirated blood and flushed with saline solutio n.
--- NOTE | 2018-05-31 01:13 | HP ---
DATE OF CONSULTATION: 05/30/2018 CHIEF COMPLAINT: Shortness of breath and falls. HISTORY OF PRESENT ILLNESS: Patient is a 43-year-old female who recently was discharged from the [facility] on 05/12/2018 who presented to the hospital with shortness of breath and falls. Most of the hi story was obtained from the records, some from patient; however, I am not sure how reliable that is a nd some from family members; however, they were not able to provide significant amount of history. Chaya sanchez does have a past medical history of congestive heart failure, diastolic dysfunction, history o f substance abuse. She is on Suboxone and has a history of iivldeho-da-onmwkw tricuspid regurgitatio n, and moderate pulmonary regurgitation who initially presented to the hospital by private car for sh ortness of breath and falls. I was told by the ER physician that patient has been falling significan tly at home and with possible sepsis due to pneumonia. Patient states that she has been having nause a, vomiting for the past 6 days and has not been able to tolerate food; however, has been drinking fl uids. However, the family whose njlwrz-rw-bgw and patient's daughter who was at the bedside and stat es that she has been falling significantly for the past 2 weeks and to the point that she has hit her head a couple of times. Patient apparently progressively got very short of breath today and worseni ng weakness which concerned the family so they brought her into the hospital for further evaluation. Patient's is not at the bedside. He is supposed to come in for more detailing on the histor y of this patient. PAST MEDICAL HISTORY: She has a history of substance abuse. She has a history of gbdyqsqv-io-nnagff mitral regurgitation, chronic diastolic heart failure, history of hypertension, peptic ulcer disease . PSYCHIATRIC HISTORY: She has history of anxiety, depression, bipolar disorder. PAST SURGICAL HISTORY: She has x2, tubal ligation, abdominal surgeries and pyloric ulcer r upture. SOCIAL HISTORY: She does have a history of drug abuse and currently is on Suboxone. I am unable to find out if she smokes; however, per records indicates that she smokes about a pack a day. No alcoho l has been noted on this. FAMILY HISTORY: Positive for coronary artery disease, diabetes among several family members. REVIEW OF SYSTEMS: Unable to obtain. PHYSICAL EXAMINATION: VITAL SIGNS: She was 98.4, patient was hypoxic and oxygen saturation 86 on nonrebreather. She is b reathing about 22 to 24 breaths per minute, blood pressure initially when she presented was 80/60. GENERAL: She is awake, oriented x1. She is following commands. HEENT: Normocephalic, atraumatic. No lymphadenopathy noted. Oral mucosa appears to be very dry. CARDIOVASCULAR: S1, S2 present. No murmurs, rubs, or gallops noted. She does have a systolic murmu r heard in her left sternal border. LUNGS: She has got significant crackles to bilateral lower bases. ABDOMEN: Soft, nontender. Bowel sounds are present x2. EXTREMITIES: She has no edema. Pulses are present x2. NEUROLOGIC: She has no focal abnormalities noted. She is able to move all her extremities. LABORATORY DATA: WBCs of 6.2, hemoglobin of 11.5, hematocrit of 35.4, platelets of 164. Chemistry: Sodium of 134, potassium is 3.9, her bicarbonate was 14, her BUN of 51, creatinine of 5.84. AST was elevated at 239, ALT of 66, and her CK was 9148. BNP was 168. Troponins were mildly elevated. Chest x-ray indicated possible right lower lobe patchy infiltrate; however, upon repeat chest x-ray i ndicates worsening pulmonary edema. ASSESSMENT AND PLAN: Patient is a 43-year-old female who presents to the hospital with shortness of breath, acute hypoxic respiratory failure. She is currently on a nonrebreather. Given the fact the patient has wbivlono-xf-ptkybg tricuspid regurgitation. There is a concern for worsening pulmonary e patrick. We will consult also Pulmonology and also consult Nephrology for starting dialysis. She did h ave repeat gases done which indicated pH of 7.25 however, her pO2 was 87. 1. Rhabdomyolysis not sure, most likely from falls. Her CK level was in the 9000s with acute kidney injury most likely from the rhabdomyolysis. Patient has been given a total of 3 liters,w e will sta rted on some normal saline at 125 mL an hour per protocol. Her repeat BMP has improved, but she is p utting out urine. Her urine output has been very muddy; however, she is putting out urine. Her crea tinine upon repeat from 5.84 went down to 5.01. 2. Anion gap metabolic acidosis most likely secondary to her underlying new acute kidney injury. 3. Acute kidney injury. This is most likely secondary to rhabdomyolysis prerenal versus acute tubul ar necrosis. We will continue IV hydration. Nephrology has been consulted for dialysis to avoid pos sible intubation. 4. History of qbmzturi-uo-smwzie tricuspid regurgitation. We will continue to monitor. Patient may need to be intubated. 5. Substance abuse. Patient takes about Suboxone, we will see the patient actually takes 12 mg subl ingual twice a daily. 6. Deep venous thrombosis prophylaxis. We will put patient on subcutaneous heparin.
[2018-05-31 05:20] LABS: Anion Gap 18 mmol/L (10-20); BUN (Urea Nitrogen) 22 mg/dL (7.0-18.7); Calc. Creatinine Clearance 42 mL/min (70-130); Carbon Dioxide 19 mmol/L (22-29); Chloride 107 mmol/L (98-107); Estimated GFR-MDRD 23; Glucose 112 mg/dL (70-105); Potassium 3.5 mmol/L (3.5-5.1); Sodium 140 mmol/L (136-145)
--- NOTE | 2018-05-31 05:26 | CON ---
DATE OF CONSULTATION: 05/30/2018 HISTORY OF PRESENT ILLNESS: A 43-year-old female who sees Dr. Rosas for routine care. A pparently for the last week or so, she is having difficulty breathing without associated chills or sw eats. She states she quit smoking 8 days ago. There is no substance abuse. She can barely walk 15 feet without getting markedly dyspneic. She was recently discharged from the hospital on 05/12/2018. At that time, a diagnosis of diastolic dysfunction with severe tricuspid regurgitation was made. Add itionally, respiratory failure, hypoxemia. DISCHARGE MEDICATIONS: Include aspirin 325, Lipitor 20, Coreg 6.25 twice a day, Prozac 40, lisinopri l5, Protonix 40, albuterol inhaler. PAST MEDICAL HISTORY: Diastolic dysfunction, mitral regurgitation, hypertension, peptic ulcer diseas e. PAST SURGICAL HISTORY: , surgery for peptic ulcer. SOCIAL HISTORY: As noted a pack a day, quit smoking 10 days ago. The last time when she was in the hospital, she says she quit smoking 2 weeks ago. ALLERGIES: None. REVIEW OF SYSTEMS: Otherwise, 10-point negative. PHYSICAL EXAMINATION: VITAL SIGNS: Sats 99% on 100% nonrebreather with some nasal O2 attached to it. She is on Levophed a nd blood pressure 120/80, pulse is 100, respiratory rate 20. CHEST: Extensive crackles bilaterally. There is no wheezing. CARDIAC: Normal S1, S2, no gallops. ABDOMEN: Soft. No masses. LABORATORY DATA: Lab shows white count 6000, H&H 11 and 34, platelet count is 164. INR 1.6. A pO2 is 87, pCO2 of 30% on 100%. Creatinine is 5.8, BUN is 57. CK is 326. BNP is 168. X-ray shows bilateral cephalization interstit ial infiltrates, cardiomegaly. IMPRESSION: 1. Respiratory failure. 2. Worsening renal failure. 3. Severe tricuspid regurgitation. 4. Metabolic encephalopathy. 5. Tobacco abuse. PLAN: She was placed on noninvasive ventilation. Otherwise, continue pressors. Antibiotics, adjust for renal failure. DVT prophylaxis and proton pump inhibitors. If condition gets worse, she may ne ed intubation. We will notify Dr. Tim. A 45-minute critical care time.
[2018-05-31 05:32] LABS: Band 2 % (5-11); Hemoglobin 10.7 g/dL (12.0-16.0); Hypochromia SLIGHT = 6-15 cells (100X) (0-5/hpf); Lymphocytes 3 % (21-51); MDiff Complete? YES; Mean Corpuscular HGB CONC 32.9 g/dL (32.0-36.0); Mean Corpuscular Hemoglobin 27.3 pg (27.0-31.0); Mean Corpuscular Volume 82.9 fL (78.0-98.0); Mean Platelet Volume 10.1 fL (7.4-10.4); Monocytes 2 % (0-10); Neutrophil 93 % (42-75); PLT Morphology Comment Appears Adequate; Platelet Count 173 thou/uL (130-400); RBC Distribution Width 17.1 % (11.5-14.5); Red Blood Cell (RBC) Count 3.91 mill/uL (4.20-5.40); White Blood Cell (WBC) Count 6.2 thou/uL (4.8-10.8)
[2018-05-31] MEDS: Piperacillin/Tazobactam 2.25 GM in Sodium Chloride 0.9% 100 ML IVPB SCH (06:08)
[2018-05-31] MEDS: Pantoprazole 40 MG VIAL IVP SCH ×2 (08:29→21:04)
[2018-05-31] MEDS: FLUoxetine HCl 20 MG CAP PO SCH (08:29)
[2018-05-31] MEDS: Atorvastatin Calcium 20 MG TAB PO SCH (08:29)
[2018-05-31] MEDS: Heparin 5,000 UNITS/ML VIAL SC SCH ×2 (08:30→21:04)
[2018-05-31] MEDS: Buprenorphine 8mg/Naloxone 2mg per 1 FILM SL SCH ×2 (08:33→21:21)
--- NOTE | 2018-05-31 08:37 | PRG ---
DATE OF SERVICE: 05/31/2018 This is 35 minutes critical care time. Events from yesterday were reviewed. This patient presented to the hospital with rhabdomyolysis that was felt to be most likely from falls and from poor oral intake. She necessitated dialysis last nig ht for fluid retention and electrolyte abnormalities. She was on BiPAP when I saw her this morning, she appeared to be breathing well, so I took it off and placed on nasal cannula. She is complaining of a dry mouth, but otherwise seems to be doing okay. PHYSICAL EXAMINATION: VITAL SIGNS: Temperature 98.5, pulse 84, blood pressure 104/48, O2 sat 100% on the BiPAP, it was abo ut 92% on 4 liters nasal cannula. Total intake for the last 24 hours 1957, output is 1085 +2400 matthew radha by hemodialysis. HEENT: Pupils react. Sclerae icteric. Oropharynx clear. NECK: Without adenopathy or JVD. LUNGS: She has a few fine crackles bilaterally. CARDIOVASCULAR: S1, S2 regular, a 2/6 murmur. ABDOMEN: Soft, obese, nontender, nondistended. EXTREMITIES: No clubbing, cyanosis, or edema. LABORATORY DATA: Sodium 140, potassium 3.5, chloride 107, CO2 19, BUN 22, creatinine 2.3, glucose 11 2. Troponin 0.045. CK has not been repeated yet, but the initial level on admission was 9148. Whit e blood count 6.2, hematocrit 32.5, platelet count 173. ASSESSMENT: 1. Rhabdomyolysis. 2. Acute pulmonary edema that has improved after hemodialysis yesterday. 3. Acute respiratory failure requiring intermittent BiPAP. 4. Substance abuse. PLAN: 1. We need to trend her CK levels. I will order one today and tomorrow and Sunday. 2. Change IV fluids to half normal saline with bicarbonate. Alkalinize urine and hopefully conversi on nonoliguric situation. 3. BiPAP off as tolerated. 4. Follow electrolytes. 5. Heparin for DVT prophylaxis. 6. Protonix for GI prophylaxis. 7. Decrease steroid dose as I do not think she is currently in a chronic obstructive pulmonary disea se exacerbation.
[2018-05-31] MEDS: Sodium Bicarbonate 70 MEQ in Sodium Chloride 0.45% 1,000 ML IV SCH ×2 (08:46→21:22)
--- NOTE | 2018-05-31 09:09 | RAD ---
AP VIEW OF THE CHEST: INDICATION: Daily CCU examination and intubation. COMPARISON: Prior study dated 05/30/18. FINDINGS: Right IJ central venous catheter is stable. Cardiomegaly persists. Perihilar opacities are slightly improved. NO pleural effusion or pneumothorax is evident. IMPRESSION: Improved perihilar opacitIES. POS: [facility]
--- NOTE | 2018-05-31 09:47 | CON ---
DATE OF CONSULTATION: 05/30/2018 CONSULTING PHYSICIAN: Jessica Posey MD REASON FOR CONSULTATION: Acute kidney injury and acidosis. REASON FOR ADMISSION: Shortness of breath. HISTORY OF PRESENT ILLNESS: This is a 43-year-old female with history of mitral regurgitation, CHF, hypertension, CKD, came to the hospital with shortness of breath and was found to have acidosis with acute kidney injury. Her creatinine was 0.8 on discharge, 2 weeks back on 05/07/2018, and this morni ng it was found at 5.84. Patient is very lethargic, very short of breath, and she was a non-rebreath er when I saw her, she was seen in the ER. No fever or chills. No nausea, vomiting, diarrhea. PAST MEDICAL HISTORY: Positive for congestive heart failure, diastolic heart failure, zvtwveoj-yb-xv sharona mitral regurgitation, hypertension, peptic ulcer disease. PAST SURGICAL HISTORY: , tubal ligation, peptic ulcer rupture and repair. HOME MEDICATIONS: Include Prozac, Lipitor, Protonix, Zestril, carvedilol, aspirin. ALLERGIES: CODEINE. SOCIAL HISTORY: Patient has a history of drug abuse in the past, smokes 1 pack per day, and drinks a lcohol occasionally. FAMILY HISTORY: Positive for heart disease. REVIEW OF SYSTEMS: Review of systems could not be obtained due to not able to answer questions liv foley, as she is on non-rebreather. PHYSICAL EXAMINATION: GENERAL: This is a well-built female in moderate distress. VITAL SIGNS: Temperature 98.1, pulse 73, respiratory rate 12, blood pressure 120/59. HEENT: Atraumatic, normocephalic. NECK: Supple. CARDIOVASCULAR: S1 and S2 heard. RESPIRATORY: Bilateral crackles. GASTROINTESTINAL: Abdomen is soft. MUSCULOSKELETAL: 1+ edema. DERMATOLOGIC: No skin rash. NEUROLOGICAL: Somnolent. LABORATORY DATA: Potassium is 3.9, BUN is 51, creatinine is 5.01. Bicarbonate is 14, pH is 7.25. ASSESSMENT AND PLAN: 1. Acute kidney injury on chronic kidney disease. The patient does have severe acidosis with fluid overload. Plan is to start on dialysis. 2. Metabolic acidosis, rule out lactic acidosis. 3. Elevated creatine kinase level. IV fluids if tolerated. 4. Anemia, mild. 5. Edema with fluid overload. Remove fluid 6. Hypertension, stable. Plan is to start on dialysis, emergent dialysis. Family agreed and we will have emergent dialysis, f luid removal and for severe metabolic acidosis. Plan discussed with Dr. Gardner and Dr. Posey. We madeline l follow. Thank you for the consult.
--- NOTE | 2018-05-31 11:56 | PQF ---
CLINICAL DOCUMENTATION IMPROVEMENT CLARIFICATION FORM: ICD-10 Updated PLEASE DO AN ADDENDUM TO THE PROGRESS NOTE WITH ANY DOCUMENTATION UPDATES OR ADDITIONS AND CARRY THROUGH TO DC SUMMARY. THANK YOU. DATE: 05/31/18 ATTN : DR. HINDS Please exercise your independent, professional judgment in responding to the clarification form. Clinical indicators are provided on the bottom of this form for your review Please check appropriate box(es): [ x] Sepsis due to: (Pna, UTI, gangrenous gall bladder, etc.) Due to: [ ] Device (please specify) [ ] Implant [ ] Graft [ ] Infusion [ ] SIRS due to non-infectious process (please specify etiology) [ ] with organ dysfunction [ ] without organ dysfunction [ ] Severe sepsis with acute organ dysfunction of: (Examples: respiratory failure, encephalopathy, acute kidney failure, other) [ ] Septic Shock [ ] Localized infection without sepsis [ ] Other diagnosis [ ] Unable to determine In addition, please specify: Present on Admission (POA): [ x ] Yes [ ] No [ ] Unable to determine For continuity of documentation, please document condition throughout progress notes and discharge summary. Thank You. CLINICAL INDICATORS - SIGNS / SYMPTOMS / LABS H&P: "I WAS TOLD BY THE ER PHYSICIAN THAT PATIENT HAS BEEN FALLING SIGNIFICANTLY AT HOME AND WITH POSSIBLE SEPSIS DUE TO PNEUMONIA." BP 65/52 RR 25 PULSE 108 RISKS: PNEUMONIA TREATMENT: IV ZOSYN (ER-PRESENT) IV FLUIDS (ER-PRESENT) LEVOPHED (ER-PRESENT) IV VANCOMYCIN (ER) CRITICAL CARE MONITORING (This form is maintained as a part of the permanent medical record) [employer] 2015 [employer]. All Rights Reserved SANDHYA [email or web address] Office: [phone] [facility] CENTERJanes
--- NOTE | 2018-05-31 12:10 | PRG ---
DATE OF SERVICE: 05/31/2018 SUBJECTIVE: Patient was seen and examined at bedside and overnight events noted. Patient denies any shortness of breath or chest pain or palpitation. No history of nausea or vomiting or diarrhea or f ever or chills or cramps. OBJECTIVE: GENERAL: This is a well-built female in no apparent distress. VITAL SIGNS: Temperature 98.3, pulse 82, respiratory 18, blood pressure 109/57. HEENT: Atraumatic, normocephalic. Oral mucosa is moist. NECK: Supple. CARDIOVASCULAR: S1, S2 heard. Rate and rhythm regular. RESPIRATORY: Clear to auscultation. GASTROINTESTINAL: Abdomen is soft. MUSCULOSKELETAL: No tenderness, no edema. DERMATOLOGIC: No skin rash. NEUROLOGIC: Alert and awake and oriented x3. No focal neurologic deficits. Moving all the extremit ies. PSYCHIATRIC: Mood and affect normal. LABORATORY DATA: Potassium 3.5, BUN 22, creatinine is 2.3. ASSESSMENT AND PLAN: 1. Acute kidney injury on chronic kidney stage 3. She had dialysis yesterday for severe acidosis an d fluid overload. 2. Fluid overload. 3. Metabolic acidosis. 4. Anemia. 5. Edema with fluid overload. 6. Hypertension. We will continue on dialysis if tolerated. We will follow.
[2018-05-31] MEDS: Norepinephrine 8 MG/0.9% NS 250 ML IVPB PRN (13:19)
[2018-05-31] MEDS: Piperacillin/Tazobactam 2.25 GM, Admixture Fee 1 EACH in Sodium Chloride 0.9% 100 ML IVPB SCH ×2 (13:34→21:02)
--- NOTE | 2018-05-31 17:30 | PDOC.PN ---
- Subjective Encounter Start Date: 05/31/18 Encounter Start Time: 15:00 Patient is seen today, lethargic and SOb. has worseing mental status from metabolic encephaloapthy - Objective MAR Reviewed: Yes Vital Signs & Weight: Vital Signs (12 hours) Temp Pulse Resp Pulse Ox 05/31/18 16:39 91 L 05/31/18 15:49 98.5 F 05/31/18 14:10 79 19 96 05/31/18 12:00 98.3 F 05/31/18 11:19 79 27 H 94 L 05/31/18 10:50 98.3 F 05/31/18 09:51 85 37 H 95 05/31/18 08:21 94 L 05/31/18 08:18 94 19 94 L 05/31/18 07:06 98.5 F 79 22 H 100 05/31/18 07:00 98.5 F Weight Weight 190 lb 11.198 oz Most Recent Monitor Data Heart Rate from ECG 94 NIBP 119/55 NIBP BP-Mean 86 Respiration from ECG 19 SpO2 85 I&O: 05/30/18 05/31/18 06/01/18 06:59 06:59 06:59 Intake Total 1958 1277 Output Total 1085 525 Balance 873 752 Result Diagrams: 06/01/18 04:38 06/01/18 04:38 Radiology Reviewed by me: Yes EKG Reviewed by me: Yes Phys Exam - Physical Examination HEENT: PERRLA, moist MMs Neck: no nodes, no JVD Respiratory: no wheezing, no rales Cardiovascular: RRR, no significant murmur Gastrointestinal: soft, non-tender Musculoskeletal: no edema, pulses present Neurological: non-focal, normal sensation Lymphatic: no nodes Dx/Plan (1) Acute exacerbation of CHF (congestive heart failure) Code(s): I50.9 - HEART FAILURE, UNSPECIFIED Status: Acute Qualifiers: Heart failure type: unspecified Qualified Code(s): I50.9 - Heart failure, unspecified Comment: Pt has New onset Renal Fauilyure on HD now, Dr. linares is following with HD daily. Elevated BNP. pending echo. (2) Altered mental status Code(s): R41.82 - ALTERED MENTAL STATUS, UNSPECIFIED Status: Acute Comment: Likely Multifactorial, currently emtabolic in nature, may need to r/o Delieruium from MD or Stroke. Will clsoley monitor for improvement with HD. (3) Anemia Code(s): D64.9 - ANEMIA, UNSPECIFIED Status: Acute Comment: Likely from Chronci kidney disease. (4) Demand ischemia of myocardium Code(s): I24.8 - OTHER FORMS OF ACUTE ISCHEMIC HEART DISEASE Status: Acute Comment: Likely Renal, Will get Echo and get cardioogy if needed. pt deneuis any chest pain. (5) Hypertension Code(s): I10 - ESSENTIAL (PRIMARY) HYPERTENSION Status: Chronic Qualifiers: Hypertension type: essential hypertension Qualified Code(s): I10 - Essential (primary) hypertension Comment: Low , will hold home meds. (6) Acute respiratory failure with hypoxia Code(s): J96.01 - ACUTE RESPIRATORY FAILURE WITH HYPOXIA Status: Resolved Comment: On rebreather mask in and out, Pulmonary following, likely from Pulmonary edema. Will wait for Echo. (7) Rhabdomyolysis Code(s): M62.82 - RHABDOMYOLYSIS Status: Acute Comment: CPK trending down, Reasons not known. Continue with Renal recommedations,. - Plan cont current plan of care, PT/OT, health and social care teacher, incentive spirometry * . Review of Systems - Review of Systems Eyes: negative: Pain, Vision Change, Conjunctivae Inflammation, Eyelid Inflammation, Redness, Other ENT: negative: Ear Pain, Ear Discharge, Nose Pain, Nose Discharge, Nose Congestion, Mouth Pain, Mouth Swelling, Throat Pain, Throat Swelling, Other Respiratory: Cough, Shortness of Breath, Wheezing. negative: Dry, Hemoptysis, SOB with Excertion, Pleuritic Pain, Sputum Genitourinary: negative: Dysuria, Frequency, Incontinence, Hematuria, Retention , Other Musculoskeletal: negative: Neck Pain, Shoulder Pain, Arm Pain, Back Pain, Hand Pain, Leg Pain, Foot Pain, Other - Medications/Allergies Allergies/Adverse Reactions: Allergies Allergy/AdvReac Type Severity Reaction Status Date / Time codeine Allergy Hives Verified 05/05/18 04:47 Medications: Current Medications Albuterol/Ipratropium (Duoneb) 3 ml NEB [id number] PRN PRN Reason: SOB &/or Wheezing Albuterol/Ipratropium (Duoneb) 3 ml NEB [id number] [facility] Last Admin: 06/01/18 06:51 Dose: 3 ml Atorvastatin Calcium (Lipitor) 20 mg PO DAILY [facility] Last Admin: 06/01/18 09:23 Dose: 20 mg Buprenorphine/Naloxone (Suboxone) 1.5 film SL BID [facility] Last Admin: 05/31/18 21:21 Dose: 1.5 film Fluoxetine HCl (Prozac) 40 mg PO DAILY [facility] Last Admin: 06/01/18 09:23 Dose: 40 mg Heparin Sodium (Porcine) (Heparin) 5,000 units SC BID [facility] Last Admin: 06/01/18 09:22 Dose: 5,000 units Piperacillin Sod/Tazobactam Sod 2.25 gm/ Miscellaneous Medication 1 each/ Sodium Chloride 100 mls @ 200 mls/hr IVPB Q8HR [facility] Last Admin: 06/01/18 06:10 Dose: 100 mls Sodium Bicarbonate 70 meq/ (Sodium Chloride) 1,070 mls @ 60 mls/hr IV .[id number] [facility] Last Admin: 06/01/18 09:14 Dose: Not Given Insulin Human Lispro (Humalog) 0 units SC .MILD SLIDING SCALE PRN PRN Reason: Mild Correctional Scale Methylprednisolone Sodium Succinate (Solu-Medrol) 20 mg IVP Q12HR [facility] Last Admin: 06/01/18 09:22 Dose: 20 mg Miscellaneous Medication (Pharmacy To Dose) 1 each IVPB ONE PRN PRN Reason: Pharmacy to dose Stop: 06/29/18 16:40 Pantoprazole Sodium (Protonix) 40 mg IVP Q12HR [facility] Last Admin: 06/01/18 09:22 Dose: 40 mg Potassium Chloride (K-Dur) 40 meq PO ONE [facility] Stop: 06/01/18 10:00 Last Admin: 06/01/18 09:22 Dose: 40 meq Sodium Chloride (Flush - Normal Saline) 10 ml IVF Q12HR [facility] Last Admin: 06/01/18 09:23 Dose: 10 ml Sodium Chloride (Flush - Normal Saline) 10 ml IVF PRN PRN PRN Reason: Saline Flush
[2018-06-01 04:57] LABS: Anion Gap 10 mmol/L (10-20); BUN (Urea Nitrogen) 20 mg/dL (7.0-18.7); Band 8 % (5-11); CK (CPK) 1226 U/L (29-168); Calc. Creatinine Clearance 56 mL/min (70-130); Calcium 8.1 mg/dL (7.8-10.44); Carbon Dioxide 26 mmol/L (22-29); Chloride 104 mmol/L (98-107); Estimated GFR-MDRD 31; Glucose 129 mg/dL (70-105); Hemoglobin 8.9 g/dL (12.0-16.0); Lymphocytes 5 % (21-51); MDiff Complete? YES; Mean Corpuscular HGB CONC 32.1 g/dL (32.0-36.0); Mean Corpuscular Volume 84.2 fL (78.0-98.0); Mean Platelet Volume 9.7 fL (7.4-10.4); Monocytes 1 % (0-10); Neutrophil 86 % (42-75); PLT Morphology Comment Appears Decreased; Platelet Count 114 thou/uL (130-400); Potassium 3.2 mmol/L (3.5-5.1); RBC Distribution Width 17.1 % (11.5-14.5); Sodium 137 mmol/L (136-145); White Blood Cell (WBC) Count 4.5 thou/uL (4.8-10.8)
[2018-06-01] MEDS: Piperacillin/Tazobactam 2.25 GM, Admixture Fee 1 EACH in Sodium Chloride 0.9% 100 ML IVPB SCH ×3 (06:10→21:52)
--- NOTE | 2018-06-01 08:09 | RAD ---
PORTABLE CHEST: Date: 06/01/18 PROVIDED CLINICAL HISTORY: Respiratory insufficiency. FINDINGS: Comparison with 05/31/18. Diffuse bilateral air space disease is demonstrated, which appears worsened with respect to the prior study. Cardiac and mediastinal silhouette is not definitely changed in appearance. Right-sided centr al line is in similar position. The supine nature of the study is not sensitive for detection of pleu ral fluid or pneumothorax without gross evidence for such. IMPRESSION: Worsened bilateral air space disease. POS: MODESTAH
[2018-06-01] MEDS ORDERED: Potassium Chloride 20 MEQ TAB PO SCH (08:15)
--- NOTE | 2018-06-01 08:22 | PRG ---
DATE OF SERVICE: 06/01/2018 Thirty-five minutes critical care time. SUBJECTIVE: The patient had to use BiPAP last night. It was just taken off this morning. She says she does not feel much better. OBJECTIVE: VITAL SIGNS: On exam, temperature is 98.4, pulse 70, blood pressure 117/68. A 24-hour intake 36/53 and output 1220. HEENT: Unremarkable. NECK: No JVD. LUNGS: Coarse breath sounds bilaterally. CARDIOVASCULAR: S1 and S2 regular. ABDOMEN: Soft. EXTREMITIES: Trace edema throughout. LABORATORY DATA: Sodium 137, potassium 3.2, chloride 104, CO2 of 26, BUN 20, creatinine 1.7, glucose 129. CPK 1226, down from admission CPK of 9148. White blood count 4.5, hematocrit 27.7, platelet c ount 114. ASSESSMENT: 1. Rhabdomyolysis. 2. Pulmonary edema. 3. Underlying chronic obstructive pulmonary disease. 4. Substance abuse. 5. Acute respiratory failure, requiring BiPAP. PLAN: 1. Try off BiPAP and see if she tolerates. 2. She looks as if she is becoming fluid overloaded, so I will try to decrease her IV fluids. Repla ce potassium.
[2018-06-01] MEDS: Sodium Bicarbonate 70 MEQ in Sodium Chloride 0.45% 1,000 ML IV SCH ×2 (09:14→12:50)
[2018-06-01] MEDS: Pantoprazole 40 MG VIAL IVP SCH ×2 (09:22→21:53)
[2018-06-01] MEDS: Heparin 5,000 UNITS/ML VIAL SC SCH ×2 (09:22→21:52)
[2018-06-01] MEDS: Atorvastatin Calcium 20 MG TAB PO SCH (09:23)
[2018-06-01] MEDS: FLUoxetine HCl 20 MG CAP PO SCH (09:23)
[2018-06-01] MEDS: Buprenorphine 8mg/Naloxone 2mg per 1 FILM SL SCH ×2 (09:57→22:01)
--- NOTE | 2018-06-01 14:54 | PRG ---
DATE OF SERVICE: 06/01/2018 SUBJECTIVE: Patient was seen and examined at bedside and overnight events noted. Patient denies any shortness of breath or chest pain or palpitation. No history of nausea or vomiting or diarrhea or fever or chills or cramps. OBJECTIVE: GENERAL: This is a well-built female in no apparent distress. VITAL SIGNS: Temperature 98.5, pulse 67, respiratory rate 18, blood pressure 109/63. HEENT: Atraumatic, normocephalic. Oral mucosa is moist. NECK: Supple. CARDIOVASCULAR: S1 and S2 heard. Rate and rhythm regular. RESPIRATORY: Clear to auscultation. GASTROINTESTINAL: Abdomen is soft. MUSCULOSKELETAL: No tenderness. No edema. DERMATOLOGIC: No skin rash. NEUROLOGIC: Alert and awake and oriented x3. No focal neurologic deficits. Moving all the extremit ies. PSYCHIATRIC: Mood and affect normal. LABORATORY DATA: Potassium 3.2, BUN is 20, creatinine is 1.7. ASSESSMENT AND PLAN: 1. Acute kidney injury on chronic kidney disease stage 3. Renal function is better, almost back to baseline. 2. Metabolic acidosis, better. 3. Fluid overload, stable. 4. Edema. 5. Hypertension, stable. 6. Hypokalemia, replace with caution. Renal function is stable. No dialysis. Okay to remove dialysis catheter if her labs remain stable t omorrow.
--- NOTE | 2018-06-01 15:53 | PDOC.PN ---
- Subjective Encounter Start Date: 06/01/18 Encounter Start Time: 13:00 Patient is seen today, very Drowsy and lethargic, She has h/o Sleep apnea but Undiagnsed. Will need outpatient Sleep Study. Pt is on HD now. - Objective MAR Reviewed: Yes Vital Signs & Weight: Vital Signs (12 hours) Temp Pulse Resp Pulse Ox 06/01/18 15:26 93 L 06/01/18 14:44 98.4 F 06/01/18 14:02 67 26 H 91 L 06/01/18 10:49 98.5 F 06/01/18 09:19 91 L 06/01/18 07:36 91 L 06/01/18 07:09 98.4 F 66 25 H 100 06/01/18 07:00 98.4 F 06/01/18 06:53 77 32 H 92 L 06/01/18 06:51 71 24 H 92 L 06/01/18 04:00 98.3 F Weight Weight 191 lb 4.8 oz Most Recent Monitor Data Heart Rate from ECG 74 NIBP 116/54 NIBP BP-Mean 69 Respiration from ECG 25 SpO2 92 I&O: 05/31/18 06/01/18 06/02/18 06:59 06:59 06:59 Intake Total 1958 3653 1060 Output Total 1085 1220 350 Balance 873 8033 710 Result Diagrams: 06/01/18 04:38 06/01/18 04:38 Radiology Reviewed by me: Yes Phys Exam - Physical Examination HEENT: PERRLA, moist MMs Neck: no nodes, no JVD Respiratory: no wheezing, no rales Cardiovascular: RRR, no significant murmur Gastrointestinal: soft, non-tender Musculoskeletal: no edema, pulses present Neurological: non-focal, normal sensation Lymphatic: no nodes Psychiatric: normal affect, A&O x 3 Skin: no rash, normal turgor Dx/Plan (1) Sleep apnea syndrome Code(s): G47.30 - SLEEP APNEA, UNSPECIFIED Status: Acute Comment: Johnathan is very lethargic and Says could sleep last night, likely she has Sleep apnea syndrom, will wait for Echo to rustam for pulmonary pressures. Will need Sleep study. (2) Acute exacerbation of CHF (congestive heart failure) Code(s): I50.9 - HEART FAILURE, UNSPECIFIED Status: Acute Qualifiers: Heart failure type: unspecified Qualified Code(s): I50.9 - Heart failure, unspecified Comment: Pt has New onset Renal Fauilyure on HD now, Dr. linares is following with HD daily. Elevated BNP. pending echo. (3) Altered mental status Code(s): R41.82 - ALTERED MENTAL STATUS, UNSPECIFIED Status: Acute Comment: Likely Multifactorial, currently emtabolic in nature, may need to r/o Delieruium from HI or Stroke. Will clsoley monitor for improvement with HD. Will get Echo today. (4) Anemia Code(s): D64.9 - ANEMIA, UNSPECIFIED Status: Acute Comment: Likely from Chronci kidney disease. (5) Demand ischemia of myocardium Code(s): I24.8 - OTHER FORMS OF ACUTE ISCHEMIC HEART DISEASE Status: Acute Comment: Likely Renal, Will get Echo and get cardioogy if needed. pt deneuis any chest pain. (6) Hypertension Code(s): I10 - ESSENTIAL (PRIMARY) HYPERTENSION Status: Chronic Qualifiers: Hypertension type: essential hypertension Qualified Code(s): I10 - Essential (primary) hypertension Comment: Low , will hold home meds. (7) Acute respiratory failure with hypoxia Code(s): J96.01 - ACUTE RESPIRATORY FAILURE WITH HYPOXIA Status: Resolved Comment: On rebreather mask in and out, Pulmonary following, likely from Pulmonary edema. Will wait for Echo. (8) Rhabdomyolysis Code(s): M62.82 - RHABDOMYOLYSIS Status: Acute Comment: CPK trending down, Reasons not known. Continue with Renal recommedations,. - Plan cont current plan of care, PT/OT, social science teacher, respiratory therapy, incentive spirometry, out of bed/ambulate, DVT proph w/lovenox * . Review of Systems - Review of Systems Respiratory: Shortness of Breath, Wheezing Cardiovascular: negative: chest pain, palpitations, orthopnea, paroxysmal nocturnal dyspnea, edema, light headedness, other Gastrointestinal: negative: Nausea, Vomiting, Abdominal Pain, Diarrhea, Constipation, Melena, Hematochezia, Other Musculoskeletal: negative: Neck Pain, Shoulder Pain, Arm Pain, Back Pain, Hand Pain, Leg Pain, Foot Pain, Other Skin: negative: Rash, Lesions, Sachin, Bruising, Other - Medications/Allergies Allergies/Adverse Reactions: Allergies Allergy/AdvReac Type Severity Reaction Status Date / Time codeine Allergy Hives Verified 05/05/18 04:47 Medications: Current Medications Albuterol/Ipratropium (Duoneb) 3 ml NEB [id number] PRN PRN Reason: SOB &/or Wheezing Albuterol/Ipratropium (Duoneb) 3 ml NEB [id number] [facility] Last Admin: 06/01/18 14:02 Dose: 3 ml Atorvastatin Calcium (Lipitor) 20 mg PO DAILY [facility] Last Admin: 06/01/18 09:23 Dose: 20 mg Buprenorphine/Naloxone (Suboxone) 1.5 film SL BID [facility] Last Admin: 06/01/18 09:57 Dose: 1.5 film Fluoxetine HCl (Prozac) 40 mg PO DAILY [facility] Last Admin: 06/01/18 09:23 Dose: 40 mg Heparin Sodium (Porcine) (Heparin) 5,000 units SC BID [facility] Last Admin: 06/01/18 09:22 Dose: 5,000 units Piperacillin Sod/Tazobactam Sod 2.25 gm/ Miscellaneous Medication 1 each/ Sodium Chloride 100 mls @ 200 mls/hr IVPB Q8HR [facility] Last Admin: 06/01/18 13:17 Dose: 100 mls Sodium Bicarbonate 70 meq/ (Sodium Chloride) 1,070 mls @ 60 mls/hr IV .[id number] [facility] Last Admin: 06/01/18 12:50 Dose: 1,070 mls Insulin Human Lispro (Humalog) 0 units SC .MILD SLIDING SCALE PRN PRN Reason: Mild Correctional Scale Methylprednisolone Sodium Succinate (Solu-Medrol) 20 mg IVP Q12HR [facility] Last Admin: 06/01/18 09:22 Dose: 20 mg Miscellaneous Medication (Pharmacy To Dose) 1 each IVPB ONE PRN PRN Reason: Pharmacy to dose Stop: 06/29/18 16:40 Pantoprazole Sodium (Protonix) 40 mg IVP Q12HR [facility] Last Admin: 06/01/18 09:22 Dose: 40 mg Sodium Chloride (Flush - Normal Saline) 10 ml IVF Q12HR [facility] Last Admin: 06/01/18 09:23 Dose: 10 ml Sodium Chloride (Flush - Normal Saline) 10 ml IVF PRN PRN PRN Reason: Saline Flush
[2018-06-02] MEDS: Sodium Bicarbonate 70 MEQ in Sodium Chloride 0.45% 1,000 ML IV SCH (04:19)
[2018-06-02 04:51] LABS: Anion Gap 11 mmol/L (10-20); BUN (Urea Nitrogen) 21 mg/dL (7.0-18.7); CK (CPK) 363 U/L (29-168); Calc. Creatinine Clearance 73 mL/min (70-130); Calcium 8.2 mg/dL (7.8-10.44); Carbon Dioxide 30 mmol/L (22-29); Chloride 105 mmol/L (98-107); Estimated GFR-MDRD 42; Glucose 147 mg/dL (70-105); Potassium 3.5 mmol/L (3.5-5.1); Sodium 142 mmol/L (136-145)
[2018-06-02 05:07] LABS: Hemoglobin 9.1 g/dL (12.0-16.0); Hypochromia SLIGHT = 6-15 cells (100X) (0-5/hpf); Lymphocytes 5 % (21-51); MDiff Complete? YES; Mean Corpuscular HGB CONC 32.7 g/dL (32.0-36.0); Mean Corpuscular Hemoglobin 27.3 pg (27.0-31.0); Mean Corpuscular Volume 83.5 fL (78.0-98.0); Mean Platelet Volume 9.6 fL (7.4-10.4); Monocytes 6 % (0-10); Neutrophil 89 % (42-75); PLT Morphology Comment Appears Decreased; Platelet Count 111 thou/uL (130-400); RBC Distribution Width 16.8 % (11.5-14.5); Red Blood Cell (RBC) Count 3.31 mill/uL (4.20-5.40)
[2018-06-02] MEDS: Piperacillin/Tazobactam 2.25 GM, Admixture Fee 1 EACH in Sodium Chloride 0.9% 100 ML IVPB SCH ×3 (05:30→21:09)
[2018-06-02] MEDS: Atorvastatin Calcium 20 MG TAB PO SCH (08:53)
[2018-06-02] MEDS: Buprenorphine 8mg/Naloxone 2mg per 1 FILM SL SCH ×2 (08:54→21:10)
[2018-06-02] MEDS: Heparin 5,000 UNITS/ML VIAL SC SCH ×2 (08:54→21:10)
[2018-06-02] MEDS: FLUoxetine HCl 20 MG CAP PO SCH (08:54)
[2018-06-02] MEDS: Pantoprazole 40 MG VIAL IVP SCH (08:55)
[2018-06-02] MEDS ORDERED: Potassium Chloride 20 MEQ TAB PO SCH (09:00)
--- NOTE | 2018-06-02 09:29 | PRG ---
DATE OF SERVICE: 06/02/2018 SUBJECTIVE: The patient is doing well, has no acute complaints. She did not use the BiPAP last nigh t. PHYSICAL EXAMINATION: VITAL SIGNS: Temperature is 98.1, pulse 60, blood pressure 120/62. A 24-hour intake 2769 and output 1080. HEENT: Unremarkable. NECK: No JVD. LUNGS: Clear, but distant breath sounds without wheezing. CARDIAC: S1 and S2, regular. ABDOMEN: Soft, nontender. EXTREMITIES: No edema. LABORATORY DATA: White blood cell count 5, hematocrit 27.7, platelet count 111. Sodium 142, potassi um 3.5, chloride 105, CO2 of 30, BUN 21, creatinine 1.4, glucose 147. CPK is down to 363. Chest x-r ay demonstrates no acute mass or infiltrate. ASSESSMENT: 1. Rhabdomyolysis - vastly improved. 2. Pulmonary edema, which is resolving. 3. Chronic obstructive pulmonary. 4. Substance abuse. 5. Status post acute respiratory failure. PLAN: The patient is stable for transfer out to the medical floor. We can go ahead and stop the bic arbonate drip and leave her on half-normal saline. She can transfer to medical, as she no longer nee ds the BiPAP.
[2018-06-02] MEDS: Sodium Chloride 0.45% 1,000 ML IV SCH (09:35)
--- NOTE | 2018-06-02 09:35 | RAD ---
PORTABLE CHEST: Date: 06/02/18 PROVIDED CLINICAL HISTORY: Respiratory insufficiency. FINDINGS: Comparison made with 06/01/18. Given differences in technique, significant interval change from the prior examination is not apparen t. IMPRESSION: As above. POS: NEELIMA
--- NOTE | 2018-06-02 13:59 | PRG ---
DATE OF SERVICE: 06/02/2018 SUBJECTIVE: Patient was seen and examined at bedside and overnight events noted. Patient denies any shortness of breath or chest pain or palpitation. No history of nausea or vomiting or diarrhea or f ever or chills or cramps. OBJECTIVE: GENERAL: This is a well-built female in no apparent distress. VITAL SIGNS: Temperature 98.5, pulse 66, respiratory rate 16, blood pressure 132/73. HEENT: Atraumatic, normocephalic. Oral mucosa is moist. NECK: Supple. CARDIOVASCULAR: S1, S2 heard. Rate and rhythm regular. RESPIRATORY: Clear to auscultation. GASTROINTESTINAL: Abdomen is soft. MUSCULOSKELETAL: No tenderness, no edema. DERMATOLOGIC: No skin rash. NEUROLOGIC: Alert and awake and oriented x3. No focal neurologic deficits. Moving all the extremit ies. PSYCHIATRIC: Mood and affect normal. LABORATORY DATA: Potassium is 3.5, BUN is 21, creatinine is 1.3. ASSESSMENT AND PLAN: 1. Acute kidney injury on chronic kidney disease, stage 3. Had one session of dialysis. No dialysi s indication today. We will remove dialysis catheter. 2. Metabolic acidosis. 3. Fluid overload. 4. Edema 5. Hypertension, stable. Overall, renal function is stable. No indication for dialysis. We will follow. We will remove dial ysis catheter.
--- NOTE | 2018-06-02 19:59 | PDOC.PN ---
- Subjective Encounter Start Date: 06/02/18 Encounter Start Time: 20:00 Subjective: f/u for acute dyspnea, volume overload and AMY requiring HD. Overall -: improved and no dyspnea but remains on O2 @ 4L/min NC. - Objective MAR Reviewed: Yes Vital Signs & Weight: Vital Signs (12 hours) Temp Pulse Resp BP Pulse Ox 06/02/18 19:22 98.1 F 61 18 124/78 100 06/02/18 18:51 93 L 06/02/18 16:36 98.5 F 67 18 122/80 96 06/02/18 12:35 66 16 06/02/18 11:14 97 06/02/18 11:06 98.5 F 66 16 97 06/02/18 10:14 98.5 F 66 16 132/73 97 06/02/18 08:00 98.0 F 66 16 100 Weight Weight 192 lb 14.472 oz Most Recent Monitor Data Heart Rate from ECG 69 NIBP 140/58 NIBP BP-Mean 85 Respiration from ECG 22 SpO2 98 I&O: 06/01/18 06/02/18 06/03/18 06:59 06:59 06:59 Intake Total 3653 2769 708 Output Total 1220 1080 170 Balance 2433 1689 538 Result Diagrams: 06/02/18 04:30 06/02/18 04:30 Additional Labs: Microbiology 05/30/18 14:22 Venous blood - Left Arm Blood Culture - Preliminary NO GROWTH AT 48 HOURS 05/30/18 14:20 Venous blood - Right Hand Blood Culture - Preliminary NO GROWTH AT 48 HOURS Laboratory Tests 05/30/18 05/30/18 05/30/18 14:27 14:27 16:12 Hgb 11.5 L Plt Count Neutrophils % (Manual) Potassium Creatinine Creatine Kinase 9148 H TSH 3rd Generation 0.4675 05/31/18 05/31/18 05/31/18 04:17 04:17 04:17 Hgb 10.7 L Plt Count 173 Neutrophils % (Manual) 93 H Potassium 3.5 Creatinine 2.33 H Creatine Kinase 3992 H TSH 3rd Generation 06/01/18 06/01/18 06/02/18 04:38 04:38 04:30 Hgb 8.9 L Plt Count 114 L Neutrophils % (Manual) 86 H Potassium 3.2 L Creatinine 1.78 H Creatine Kinase 1226 H 363 H TSH 3rd Generation Radiology Reviewed by me: Yes (PCXR - no significant interval change) Phys Exam - Physical Examination Constitutional: NAD lethargic, opens eyes to name HEENT: PERRLA, sclera anicteric, oral pharynx no lesions Neck: no nodes, no JVD, supple, full ROM few rhonchi o/w clear Cardiovascular: RRR, no significant murmur, no rub, gallop Gastrointestinal: soft, non-tender, no distention, positive bowel sounds Musculoskeletal: no edema, pulses present Neurological: normal sensation, moves all 4 limbs lethargic, answers questions slowly Skin: no rash, normal turgor, cap refill <2 seconds Dx/Plan (1) Rhabdomyolysis Code(s): M62.82 - RHABDOMYOLYSIS Status: Acute Comment: Improving with IVF's , likely multifactorial including dehydration and AMY, serial monitoring (2) Acute respiratory failure with hypoxia Code(s): J96.01 - ACUTE RESPIRATORY FAILURE WITH HYPOXIA Status: Resolved Comment: Resolving, remains on O2 via NC, titrate to clinical response, Solumedrol 20mg IV q12h, Duonebs q4h prn (3) Demand ischemia of myocardium Code(s): I24.8 - OTHER FORMS OF ACUTE ISCHEMIC HEART DISEASE Status: Acute Comment: Likely multifactorial, 2D echo pending, supportive mgmt (4) Toxic metabolic encephalopathy Code(s): G92 - TOXIC ENCEPHALOPATHY Status: Acute Comment: Unclear and likely multifactorial, supportive mgmt, slow improvement, ? Personality disorder (5) AMY (acute kidney injury) Code(s): N17.9 - ACUTE KIDNEY FAILURE, UNSPECIFIED Status: Acute Comment: Improved after urgent HD, no current plans for continuation of HD as renal function recovering, serial creatinine. - Plan continue antibiotics, PT/OT, manager social media, respiratory therapy, out of bed/ ambulate, DVT proph w/SCDs Stable overall -: Continue Zosyn another 24h then consider de-escalation -: Continue Solumedrol 20mg IV q12h -: CM for disposition planning -: Continue IVF's @ 75ml/h * AM lab: BMP, CBC
[2018-06-03] MEDS: Sodium Chloride 0.45% 1,000 ML IV SCH ×2 (00:05→14:29)
[2018-06-03] MEDS: Piperacillin/Tazobactam 2.25 GM, Admixture Fee 1 EACH in Sodium Chloride 0.9% 100 ML IVPB SCH ×3 (05:17→23:00)
[2018-06-03 05:54] LABS: Anion Gap 9 mmol/L (10-20); BUN (Urea Nitrogen) 19 mg/dL (7.0-18.7); Calc. Creatinine Clearance 104 mL/min (70-130); Calcium 8.5 mg/dL (7.8-10.44); Carbon Dioxide 31 mmol/L (22-29); Chloride 107 mmol/L (98-107); Estimated GFR-MDRD 61; Glucose 129 mg/dL (70-105); Sodium 143 mmol/L (136-145)
[2018-06-03 06:05] LABS: Band 7 % (5-11); Hemoglobin 9.3 g/dL (12.0-16.0); Lymphocytes 14 % (21-51); MDiff Complete? YES; Mean Corpuscular HGB CONC 32.7 g/dL (32.0-36.0); Mean Corpuscular Hemoglobin 27.6 pg (27.0-31.0); Mean Corpuscular Volume 84.4 fL (78.0-98.0); Metamyelocyte 3 % (0-0); Monocytes 7 % (0-10); Neutrophil 69 % (42-75); PLT Morphology Comment Appears Decreased; Platelet Count 113 thou/uL (130-400); RBC Distribution Width 16.8 % (11.5-14.5); Red Blood Cell (RBC) Count 3.35 mill/uL (4.20-5.40); White Blood Cell (WBC) Count 4.7 thou/uL (4.8-10.8)
[2018-06-03] MEDS: FLUoxetine HCl 20 MG CAP PO SCH (09:36)
[2018-06-03] MEDS: Atorvastatin Calcium 20 MG TAB PO SCH (09:37)
[2018-06-03] MEDS: Heparin 5,000 UNITS/ML VIAL SC SCH ×2 (09:37→21:37)
[2018-06-03] MEDS: Buprenorphine 8mg/Naloxone 2mg per 1 FILM SL SCH (09:40)
--- NOTE | 2018-06-03 10:59 | PRG ---
DATE OF SERVICE: 06/03/2018. SUBJECTIVE: This is a 43-year old female being seen for acute kidney injury. The patient denies any nausea, vomiting, or chest pain. PHYSICAL EXAMINATION: GENERAL: Patient is awake, alert. VITAL SIGNS: Afebrile, pulse 71, breathing at 16, blood pressure 146/82. GENERAL APPEARANCE AND MENTAL STATUS: Fair. HEAD/NECK: Normocephalic. Atraumatic. EYES: EOMI. No deformity. EARS: Clear. No ulcers. NOSE: Intact. No lesions. MOUTH: Clear. No discharge. THROAT: Clear. No exudate. LUNGS: Clear. No crackles. CARDIAC: S1, S2. No rub. ABDOMEN: Benign. BS+. GENITALIA/RECTUM: Powell absent. BACK/EXTREMITIES: Edema 0+ Ulcer-. NEUROLOGICAL: Alert and motor intact. SKIN: Rash- Bruise- LYMPHATICS: Edema- Ulcer-. LABORATORY DATA: Show hemoglobin 9.3, creatinine 0.99. ASSESSMENT AND RECOMMENDATIONS: 1. Acute kidney injury, resolved. 2. Chronic kidney disease stage 2, stable. 3. Hypertension, stable. 4. Anemia, stable. No indication for dialysis. I will follow up this patient as an outpatient.
--- NOTE | 2018-06-03 12:48 | PRG ---
DATE OF SERVICE: 06/03/2018 SUBJECTIVE: The patient is being very cantankerous this morning and not cooperate with any type of exam. She really talk to me. PHYSICAL EXAMINATION: VITAL SIGNS: Temperature is 98.0, pulse 81, respiration 16, O2 saturations 91%, blood pressure 146/8 2. HEENT: Unremarkable. NECK: No JVD. CHEST: Clear without wheezing. CARDIAC: S1 and S2 regular. ABDOMEN: Soft. EXTREMITIES: No edema. LABORATORY DATA: White blood cell count 4.7, hematocrit 28.3, platelet count 113. Sodium 143, potas sium 4, chloride 107, CO2 31, BUN 19, creatinine 0.9, glucose 129. CPK yesterday was 363. ASSESSMENT: 1. Rhabdomyolysis. 2. Improved pulmonary edema. 3. Chronic obstructive pulmonary disease. 4. Substance abuse. PLAN: Her pulmonary status is stable. She is continuing IV fluids for her rhabdomyolysis. I think her steroids can be stopped, so I have stopped those. Her pulmonary status is at baseline. We will sign off the case. Please recall if further assistance needed.
--- NOTE | 2018-06-03 14:32 | PDOC.PN ---
- Subjective Encounter Start Date: 06/03/18 Encounter Start Time: 14:15 Subjective: f/u for suspected PNA, AMS and persistent hypoxia on O2 via NC. -: Pt remains lethargic, sleeping most of time and unwilling to cooperate -: and answer questions. - Objective MAR Reviewed: Yes Vital Signs & Weight: Vital Signs (12 hours) Temp Pulse Resp BP Pulse Ox 06/03/18 13:59 84 20 06/03/18 12:00 97.8 F 67 20 137/81 97 06/03/18 08:00 97.8 F 67 20 93 L 06/03/18 07:47 98.0 F 71 16 146/82 H 91 L 06/03/18 07:13 90 14 06/03/18 04:00 98.5 F 71 18 159/89 H 99 Weight Weight 197 lb 7 oz Most Recent Monitor Data Heart Rate from ECG 69 NIBP 140/58 NIBP BP-Mean 85 Respiration from ECG 22 SpO2 98 I&O: 06/02/18 06/03/18 06/04/18 06:59 06:59 06:59 Intake Total 2769 1728 Output Total 1080 170 Balance 1689 1558 Result Diagrams: 06/03/18 05:32 06/03/18 05:32 Additional Labs: Microbiology 05/30/18 14:22 Venous blood - Left Arm Blood Culture - Preliminary NO GROWTH AT 48 HOURS 05/30/18 14:20 Venous blood - Right Hand Blood Culture - Preliminary NO GROWTH AT 48 HOURS Laboratory Tests 05/30/18 05/30/18 05/30/18 14:27 14:27 16:12 Hgb 11.5 L Plt Count Neutrophils % (Manual) Potassium Creatinine Creatine Kinase 9148 H TSH 3rd Generation 0.4675 05/31/18 05/31/18 05/31/18 04:17 04:17 04:17 Hgb 10.7 L Plt Count 173 Neutrophils % (Manual) 93 H Potassium 3.5 Creatinine 2.33 H Creatine Kinase 3992 H TSH 3rd Generation 06/01/18 06/01/18 06/02/18 04:38 04:38 04:30 Hgb 8.9 L Plt Count 114 L Neutrophils % (Manual) 86 H Potassium 3.2 L Creatinine 1.78 H 1.36 H Creatine Kinase 1226 H 363 H TSH 3rd Generation Phys Exam - Physical Examination lethargic, slurs words, uncooperative, pulls off nasal cannula HEENT: PERRLA, sclera anicteric, oral pharynx no lesions Neck: no nodes, no JVD, supple, full ROM Respiratory: no wheezing, no rales, no rhonchi, clear to auscultation bilateral Cardiovascular: RRR, no significant murmur, no rub, gallop Gastrointestinal: soft, non-tender, no distention, positive bowel sounds Musculoskeletal: no edema, pulses present Neurological: normal sensation, moves all 4 limbs flat, lethargic, slurs words, uncoordinated movement Skin: no rash, normal turgor, cap refill <2 seconds Dx/Plan (1) Rhabdomyolysis Code(s): M62.82 - RHABDOMYOLYSIS Status: Acute Comment: Improving with IVF's , likely multifactorial including dehydration and AMY, serial monitoring, saline lock IVF (2) Acute respiratory failure with hypoxia Code(s): J96.01 - ACUTE RESPIRATORY FAILURE WITH HYPOXIA Status: Acute Comment: Remains on O2 via NC, titrate to clinical response, Solumedrol d/c'd, Duonebs q4h prn (3) Demand ischemia of myocardium Code(s): I24.8 - OTHER FORMS OF ACUTE ISCHEMIC HEART DISEASE Status: Acute Comment: Likely multifactorial, 2D echo normal, supportive mgmt (4) Toxic metabolic encephalopathy Code(s): G92 - TOXIC ENCEPHALOPATHY Status: Acute Comment: Persistent, Unclear and likely multifactorial, supportive mgmt, slow improvement, ? Personality disorder, ? component of Suboxone (5) AMY (acute kidney injury) Code(s): N17.9 - ACUTE KIDNEY FAILURE, UNSPECIFIED Status: Acute Comment: Improved after urgent HD, no current plans for continuation of HD as renal function recovering, serial creatinine. (6) Pneumonia Code(s): J18.9 - PNEUMONIA, UNSPECIFIED ORGANISM Status: Suspected Qualifiers: Laterality: left Comment: ? community acquired with suspected gm + cocci, continue Zosyn, Duonebs , O2 - Plan continue antibiotics, PT/OT, social insurance analyst, respiratory therapy, out of bed/ ambulate, DVT proph w/SCDs Saline lock IVF -: Continue Zosyn another 24h -: OOB/ambulate with PT -: Duonebs q4h prn -: AM lab: BMP, CBC * Consider [facility] evaluation
[2018-06-03] MEDS ORDERED: Ondansetron HCl/PF 4 MG/2 ML Vial IVP PRN (23:52)
[2018-06-04 04:33] LABS: Anion Gap 10 mmol/L (10-20); BUN (Urea Nitrogen) 14 mg/dL (7.0-18.7); Calc. Creatinine Clearance 125 mL/min (70-130); Calcium 8.7 mg/dL (7.8-10.44); Carbon Dioxide 32 mmol/L (22-29); Chloride 104 mmol/L (98-107); Estimated GFR-MDRD 76; Glucose 92 mg/dL (70-105); Sodium 143 mmol/L (136-145)
[2018-06-04 04:39] LABS: #Eosinphils 0.1 thou/uL (0.0-0.7); #Lymphocytes 1.2 thou/uL (1.20-3.40); #Monocytes 0.5 thou/uL (0.11-0.59); #Neutrophils 3.8 thou/uL (1.40-6.50); %Basophils 0.2 % (0.0-1.0); %Eosinophils 1.7 % (0.0-10.0); %Lymphocytes 20.4 % (21.0-51.0); %Monocytes 9.6 % (0.0-10.0); %Neutrophils 68.1 % (42.0-75.0); Hemoglobin 9.8 g/dL (12.0-16.0); Mean Corpuscular HGB CONC 32.8 g/dL (32.0-36.0); Mean Corpuscular Hemoglobin 27.5 pg (27.0-31.0); Mean Corpuscular Volume 83.7 fL (78.0-98.0); Mean Platelet Volume 8.8 fL (7.4-10.4); Platelet Count 115 thou/uL (130-400); RBC Distribution Width 16.7 % (11.5-14.5); Red Blood Cell (RBC) Count 3.57 mill/uL (4.20-5.40); White Blood Cell (WBC) Count 5.6 thou/uL (4.8-10.8)
[2018-06-04] MEDS: Piperacillin/Tazobactam 2.25 GM, Admixture Fee 1 EACH in Sodium Chloride 0.9% 100 ML IVPB SCH ×3 (06:03→22:09)
[2018-06-04] MEDS: FLUoxetine HCl 20 MG CAP PO SCH ×2 (08:12→08:47)
[2018-06-04] MEDS: Atorvastatin Calcium 20 MG TAB PO SCH ×2 (08:13→08:47)
[2018-06-04] MEDS: Heparin 5,000 UNITS/ML VIAL SC SCH ×2 (08:41→20:27)
[2018-06-04] MEDS ORDERED: Buprenorphine 8mg/Naloxone 2mg per 1 FILM SL SCH (09:00)
--- NOTE | 2018-06-04 14:24 | PDOC.PN ---
- Subjective Encounter Start Date: 06/04/18 Encounter Start Time: 14:10 Subjective: f/u for persistent encephalopathy suspected due to Suboxone. Currently -: off the medication but still with AMS. Apparently had same symptoms -: 3-4 days prior to admit. Hx of narcotic abuse/dependence - Objective MAR Reviewed: Yes Vital Signs & Weight: Vital Signs (12 hours) Temp Pulse Resp BP Pulse Ox 06/04/18 13:42 98 16 95 06/04/18 11:29 97.5 F L 107 H 20 134/89 95 06/04/18 11:26 106 H 18 95 06/04/18 08:02 76 20 96 06/04/18 08:00 97.5 F L 76 20 06/04/18 07:14 97.5 F L 70 16 159/94 H 98 Weight Weight 197 lb 7 oz Most Recent Monitor Data Heart Rate from ECG 69 NIBP 140/58 NIBP BP-Mean 85 Respiration from ECG 22 SpO2 98 I&O: 06/03/18 06/04/18 06/05/18 06:59 06:59 06:59 Intake Total 1728 720 Output Total 170 Balance 1558 720 Result Diagrams: 06/04/18 03:58 06/04/18 03:58 Additional Labs: Microbiology 05/30/18 14:22 Venous blood - Left Arm Blood Culture - Preliminary NO GROWTH AT 48 HOURS 05/30/18 14:20 Venous blood - Right Hand Blood Culture - Preliminary NO GROWTH AT 48 HOURS Laboratory Tests 05/30/18 05/30/18 05/30/18 14:27 14:27 16:12 Hgb 11.5 L Plt Count Neutrophils % (Manual) Potassium Creatinine Creatine Kinase 9148 H TSH 3rd Generation 0.4675 05/31/18 05/31/18 05/31/18 04:17 04:17 04:17 Hgb 10.7 L Plt Count 173 Neutrophils % (Manual) 93 H Potassium 3.5 Creatinine 2.33 H Creatine Kinase 3992 H TSH 3rd Generation 06/01/18 06/01/18 06/02/18 04:38 04:38 04:30 Hgb 8.9 L Plt Count 114 L Neutrophils % (Manual) 86 H Potassium 3.2 L Creatinine 1.78 H 1.36 H Creatine Kinase 1226 H 363 H TSH 3rd Generation Phys Exam - Physical Examination lethargic, moans sporadically HEENT: PERRLA, sclera anicteric, oral pharynx no lesions Neck: no nodes, no JVD, supple, full ROM few scattered rhonchi Respiratory: no rales, no rhonchi Cardiovascular: RRR, no significant murmur, no rub, gallop Gastrointestinal: soft, non-tender, no distention, positive bowel sounds Musculoskeletal: no edema, pulses present lethargic, uncoordinated movements Neurological: moves all 4 limbs Skin: no rash, normal turgor, cap refill <2 seconds Dx/Plan (1) Toxic metabolic encephalopathy Code(s): G92 - TOXIC ENCEPHALOPATHY Status: Acute Comment: Suspected due to Suboxone, d/c Suboxone, [facility] evaluation, likely will need inpatient psychiatric placement for medication adjustments and monitoring (2) Rhabdomyolysis Code(s): M62.82 - RHABDOMYOLYSIS Status: Acute Comment: Improving with IVF's , likely multifactorial including dehydration and AMY, serial monitoring, saline lock IVF (3) Acute respiratory failure with hypoxia Code(s): J96.01 - ACUTE RESPIRATORY FAILURE WITH HYPOXIA Status: Acute Comment: O2 d/c'd, Solumedrol d/c'd, Duonebs q4h prn, supportive mgmt (4) Demand ischemia of myocardium Code(s): I24.8 - OTHER FORMS OF ACUTE ISCHEMIC HEART DISEASE Status: Acute Comment: Likely multifactorial, 2D echo normal, supportive mgmt (5) AMY (acute kidney injury) Code(s): N17.9 - ACUTE KIDNEY FAILURE, UNSPECIFIED Status: Acute Comment: Improved after urgent HD, no current plans for continuation of HD as renal function recovering, serial creatinine. (6) Pneumonia Code(s): J18.9 - PNEUMONIA, UNSPECIFIED ORGANISM Status: Suspected Qualifiers: Laterality: left Comment: ? community acquired with suspected gm + cocci, continue Zosyn, Duonebs , O2 - Plan plan discussed w/ family, continue antibiotics, PT/OT, community mental health social worker, DVT proph w/SCDs Persistent encephalopathy likely due to Suboxone -: D/C Suboxone -: MR to evaluate with present -: Check CT brain today -: Check Ammonia level * KCL 40meq BID * AM lab: CMP
[2018-06-04] MEDS: Potassium Chloride 20 MEQ TAB PO SCH (20:26)
[2018-06-05] MEDS ORDERED: Lorazepam 2 MG/ML VIAL ONE ×3 (04:22→16:54)
[2018-06-05] MEDS ORDERED: Propofol 1,000 MG/100 ML VIAL IV ONE (05:09)
[2018-06-05] MEDS ORDERED: Ventilator Sedation Protocol 1 EACH FS ONE (05:09)
[2018-06-05] MEDS ORDERED: Labetalol HCl 100 MG/20 ML VIAL SLOW IVP PRN (05:12)
[2018-06-05] MEDS ORDERED: Fentanyl BOLUS 250 ML IVPB PRN (05:18)
[2018-06-05] MEDS ORDERED: DISCONTINUE PREVIOUS NARCOTIC PAIN MEDICATIONS AND BENZODIAZEPINES FS SCH (05:18)
[2018-06-05] MEDS ORDERED: fentaNYL Citrate/PF 2,000 MCG in Sodium Chloride 0.9% 60 ML IV SCH (05:18)
[2018-06-05] MEDS ORDERED: Propofol BOLUS 1,000 MG/100 ML VIAL IV PRN (05:18)
--- NOTE | 2018-06-05 05:22 | PDOC.EVN ---
Event Note - Event Note Event Note: code blue activated since pt was agitated and developed episode of seizures, unclear etiology pt had been developing worsening symptoms of encephalopathy, being aggressive and combative, after seizures pt was unable to protect airways and intubation was necessary, will place in icu, ct head has been done, report discussed with radiologist pt has findings suggestive of posterior reversible encephalopathy syndrome,likely secondary to hypertensive emergency, mri has been ordered for confirmation, pt has developed status epilepticus, on high dose propofol, dilantin loading dose, and benzos for active seiaures control, neuro has been consulted, awaiting call back , we will follow rec's , critical care was already following pt , we will follow recs, pt was initially hypertensive, blood pressure has been controlled, has been notified by warehouse order filler, he has stated he has to go to work as per report. meds have been reconciled.
[2018-06-05 05:33] LABS: CO2 Tension 28.5 mmHg (35.0-45.0); pH, Arterial 7.57 (7.35-7.45)
[2018-06-05 05:34] LABS: Actual Bicarbonate (HCO3a) 25.7 mEq/L (22-28); O2 Tension (PaO2) 58.2 mmHg (80.0-100.0)
[2018-06-05 05:35] LABS: Base Excess (BEa) 4.2 mEq/L (-2.0 to +3.0); Hemoglobin (Hb) 10.8 g/dL (12.0-16.0)
[2018-06-05 05:36] LABS: ALV-art Gradient 262.675 (0-20); Calcium, Ionized 1.1 mmol/L (1.12-1.30); Puncture Site LRA
[2018-06-05 05:37] LABS: Eosinophils 8 % (0-10); Hemoglobin 10.8 g/dL (12.0-16.0); Lymphocytes 22 % (21-51); MDiff Complete? YES; Mean Corpuscular HGB CONC 33.1 g/dL (32.0-36.0); Mean Corpuscular Hemoglobin 27.5 pg (27.0-31.0); Mean Corpuscular Volume 83.3 fL (78.0-98.0); Mean Platelet Volume 9.2 fL (7.4-10.4); Monocytes 10 % (0-10); Neutrophil 60 % (42-75); PLT Morphology Comment Appears Decreased; Platelet Count 106 thou/uL (130-400); RBC Distribution Width 16.8 % (11.5-14.5); Red Blood Cell (RBC) Count 3.92 mill/uL (4.20-5.40); White Blood Cell (WBC) Count 6.3 thou/uL (4.8-10.8)
[2018-06-05] MEDS: Lorazepam 2 MG/ML VIAL SLOW IVP PRN ×2 (05:46→06:45)
[2018-06-05 05:53] LABS: ALT (SGPT) 23 U/L (8-55); AST (SGOT) 17 U/L (5-34); Albumin 3.5 g/dL (3.5-5.0); Alkaline Phosphatase 73 U/L (40-150); Anion Gap 15 mmol/L (10-20); BUN (Urea Nitrogen) 11 mg/dL (7.0-18.7); Bilirubin, Total 1.4 mg/dL (0.2-1.2); Calc. Creatinine Clearance 137 mL/min (70-130); Calcium 8.7 mg/dL (7.8-10.44); Carbon Dioxide 28 mmol/L (22-29); Chloride 102 mmol/L (98-107); Estimated GFR-MDRD 84; Globulin 2.5 g/dL (2.4-3.5); Glucose 120 mg/dL (70-105); Sodium 142 mmol/L (136-145)
[2018-06-05] MEDS: Piperacillin/Tazobactam 2.25 GM, Admixture Fee 1 EACH in Sodium Chloride 0.9% 100 ML IVPB SCH ×3 (06:21→21:36)
[2018-06-05] MEDS ORDERED: Fosphenytoin Sodium 1,500 MG in Sodium Chloride 0.9% 100 ML IVPB SCH (07:00)
--- NOTE | 2018-06-05 09:09 | RAD ---
FRONTAL VIEW CHEST: Comparison: 01-06-17 Indication: History of TIA. ICU patient, follow up. Evaluation of tube placement. FINDINGS: Endotracheal tube is present with the tip at the jeremias. This is partially obscured by overlying defi brillator pad. There has been progression of bilateral parenchymal opacities, more notable on the lef t. Cardiac silhouette and pulmonary vasculature are prominent. Extensive artifact limits detail. IMPRESSION: 1. Interval placement of endotracheal tube with tip at the jeremias, although partially obscured by ove rlying defibrillator pad. Recommend removal of extrinsic artifacts and follow up imaging for more def initive evaluation. 2. Progressive pulmonary parenchymal opacities which could relate to progressive edema given the enla rgement of the cardiac silhouette. POS: [facility]
[2018-06-05] MEDS ORDERED: Furosemide 20 MG/2 ML VIAL SLOW IVP SCH (09:15)
--- NOTE | 2018-06-05 09:19 | PRG ---
DATE OF SERVICE: 06/05/2018 SERVICE: Pulmonary Medicine INTERVAL HISTORY: The patient was sent out of the ICU a day or two ago. On the floor, she was doing well, but she started having a hypertensive event. She became a little combative. She then had a s eizure. She was intubated to protect her airway and she went down for a CAT scan of the brain. It h ad findings consistent with a posterior reversible leukoencephalopathy. Otherwise, there has been no interval change to the condition. She is heavily sedated on propofol currently. We have not been a ble to identify her underlying neurologic status since she has been intubated. She cannot provide an y additional elements of the history. PHYSICAL EXAMINATION: VITAL SIGNS: Afebrile, pulse 74, blood pressure 125/64, respirations 12, saturation 100% on 27% FiO2 . GENERAL: The patient is intubated and sedated heavily. HEENT: Normocephalic, atraumatic. Sclerae are white, conjunctivae pink. Oral mucosa is moist witho ut lesions. LUNGS: Decent air entry. There is no prolonged expiratory phase. I do not appreciate rhonchi, crac kles or wheezing. HEART: Normal rate, regular. ABDOMEN: Soft, nontender, nondistended. Bowel sounds are positive. MUSCULOSKELETAL: No cyanosis or clubbing. There is 2+ edema in the bilateral lower extremities. NEUROLOGIC: Grossly nonfocal. LABORATORY DATA: WBC 6.3, hemoglobin 10.8, platelets 106,000. PH 7.57, pCO2 28, pO2 59. This was o n 50% FiO2 at the time. She was on a rate of 16. Potassium 3.0. Basic metabolic profile and liver function studies are essentially otherwise unremarkable except for total bilirubin of 1.4. Urine yvon g screen is unremarkable. Hepatitis serologies are negative. Blood cultures x2 are unremarkable. IMAGING: CT of the brain demonstrates findings possibly consistent with posterior reversible leukoen cephalopathy based on oral report. The final report is currently pending. ASSESSMENT: 1. Seizure. 2. Acute hypoxic respiratory failure. 3. Chronic obstructive pulmonary disease without acute exacerbation based on ventilator wave form. 4. Substance abuse. 5. Rhabdomyolysis, resolved. 6. Hypokalemia. PLAN: I will replace the potassium and we will check a magnesium and phosphorus with the blood that is in the laboratory. I will deescalate her oxygen as tolerated. We are going to interrupt her prop ofol and see what her neurologic status is. Neurology consultation will be placed. Pulmonary Critic al Care will continue to follow along while she remains in this location. We have made multiple adju stments to the ventilator including backing off on the minute volume because of her respiratory alkal osis. CRITICAL CARE TIME: 30 minutes.
[2018-06-05] MEDS: FLUoxetine HCl 20 MG CAP PO SCH (09:30)
[2018-06-05] MEDS: Atorvastatin Calcium 20 MG TAB PO SCH (09:30)
[2018-06-05] MEDS: Heparin 5,000 UNITS/ML VIAL SC SCH ×2 (09:30→20:06)
[2018-06-05 09:36] LABS: Phosphorus 2.5 mg/dL (2.3-4.7)
--- NOTE | 2018-06-05 10:19 | CT ---
PRELIMINARY REPORT/[facility]/EMERGENTY AFTER-HOURS PROCEDURE Addendum created by Antonio Montanez MD on 06/05/2018 5:27 AM Central Time ([place]) THIS REPORT CO NTAINS FINDINGS THAT MAY BE CRITICAL TO PATIENT CARE. The findings were verbally communicated via tel ephone conference with Dr. Quinteros by Dr. Montanez on 06/05/2018 5:27 AM CDT. The results were acknow ledged and understood. Initial Report created on 06/05/2018 5:23 AM Central Time ([place]) CT Head Without Intravenous Contrast CLINICAL HISTORY: 43 years old, female; Signs and symptoms; Altered mental status/memory loss; Confusion or disorientat ion; Patient HX: Ams/confusion TECHNIQUE: Axial computed tomography images of the head/brain without intravenous contrast. COMPARISON: No relevant prior studies available. FINDINGS: Brain: Symmetric decreased attenuation in the occipital lobe white matter dorsally, adjacent to the t he basal ganglia, and in the high left parietal lobe, nonspecific in appearance, but which may reflec t changes of posterior reversible encephalopathy syndrome. MRI correlation is advised. No hemorrhage. Ventricles: No acute findings. No ventriculomegaly. Bones/joints: No acute findings. No acute fracture. Soft tissues: No acute findings. Sinuses: Unremarkable as visualized. No acute sinusitis. Mastoid air cells: Unremarkable as visualized. No mastoid effusion. IMPRESSION: White matter changes as described, nonspecific in appearance, but which may reflect changes of metal tester ior reversible encephalopathy syndrome (PRES). MRI correlation is advised. No hemorrhage. No midline shift or axial herniation. Thank you for allowing us to participate in the care of your patient. Dictated and Authenticated by: Antonio Montanez MD 06/05/2018 5:23 AM Central Time ([place]) FINAL REPORT EMERGENCY AFTER HOURS CT OF THE BRAIN WITHOUT CONTRAST: Date: 06/05/18 COMPARISON: 01/06/17. FINDINGS/IMPRESSION: Findings agree with the preliminary report by Sherie. There is new hypodensity in the bilateral parieto occipital lobes. This could be secondary to PRES. POS: [facility]
--- NOTE | 2018-06-05 11:25 | PDOC.PN ---
- Subjective Encounter Start Date: 06/05/18 Encounter Start Time: 10:50 Subjective: f/u for AMS, ? seizure overnight with Code Blue activation. [facility] Propofol/Ativan/Dilantin. - Objective MAR Reviewed: Yes Vital Signs & Weight: Vital Signs (12 hours) Temp Pulse Resp BP Pulse Ox 06/05/18 10:30 73 06/05/18 10:00 12 06/05/18 09:59 98.4 F 79 11 L 98 06/05/18 07:11 79 06/05/18 07:00 98.4 F 06/05/18 06:00 12 06/05/18 05:46 80 191/99 H 06/05/18 05:38 69 156/88 H 06/05/18 05:10 99.4 F 80 16 100 06/05/18 05:00 99.4 F 16 06/05/18 00:04 66 16 96 06/05/18 00:00 98.1 F 70 20 94 L Weight Weight 185 lb 6.54 oz Most Recent Monitor Data Heart Rate from ECG 71 NIBP 116/58 NIBP BP-Mean 84 Respiration from ECG 17 SpO2 96 I&O: 06/04/18 06/05/18 06/06/18 06:59 06:59 06:59 Intake Total 720 1304 Output Total 450 675 Balance 720 274 -675 Result Diagrams: 06/05/18 05:10 06/05/18 05:10 Additional Labs: Microbiology 05/30/18 14:22 Venous blood - Left Arm Blood Culture - Preliminary NO GROWTH AT 48 HOURS 05/30/18 14:20 Venous blood - Right Hand Blood Culture - Preliminary NO GROWTH AT 48 HOURS Laboratory Tests 05/30/18 05/30/18 05/30/18 14:27 14:27 16:12 Hgb 11.5 L Plt Count Neutrophils % (Manual) Potassium Carbon Dioxide Creatinine Total Bilirubin AST ALT Alkaline Phosphatase Ammonia Creatine Kinase 9148 H TSH 3rd Generation 0.4675 05/31/18 05/31/18 05/31/18 04:17 04:17 04:17 Hgb 10.7 L Plt Count 173 Neutrophils % (Manual) 93 H Potassium 3.5 Carbon Dioxide Creatinine 2.33 H Total Bilirubin AST ALT Alkaline Phosphatase Ammonia Creatine Kinase 3992 H TSH 3rd Generation 07/06/01/18 06/02/18 04:38 04:38 04:30 Hgb 8.9 L Plt Count 114 L Neutrophils % (Manual) 86 H Potassium 3.2 L Carbon Dioxide Creatinine 1.78 H 1.36 H Total Bilirubin AST ALT Alkaline Phosphatase Ammonia Creatine Kinase 1226 H 363 H TSH 3rd Generation 06/04/18 06/04/18 06/05/18 03:58 17:09 05:10 Hgb Plt Count Neutrophils % (Manual) Potassium 3.0 L Carbon Dioxide 32 H Creatinine Total Bilirubin 1.4 H AST 17 ALT 23 Alkaline Phosphatase 73 Ammonia 31 Creatine Kinase TSH 3rd Generation 06/05/18 05:10 Hgb Plt Count Neutrophils % (Manual) Potassium Carbon Dioxide Creatinine Total Bilirubin AST ALT Alkaline Phosphatase Ammonia Creatine Kinase 142 TSH 3rd Generation Radiology Reviewed by me: Yes (CT brain - ? PRES) EKG Reviewed by me: Yes (Tele - SR) Phys Exam - Physical Examination sedate, no response to stimuli ETT in place HEENT: PERRLA, sclera anicteric, oral pharynx no lesions Neck: no nodes, no JVD, supple, full ROM Respiratory: no wheezing, no rales, no rhonchi, clear to auscultation bilateral S1, S2 Cardiovascular: RRR, no significant murmur, no rub, gallop Gastrointestinal: soft, non-tender, no distention, positive bowel sounds Musculoskeletal: no edema, pulses present sedate, unresponsive to stimuli Skin: no rash, normal turgor, cap refill <2 seconds Deviation from normal: [place] with [place] urine Dx/Plan (1) Acute respiratory failure with hypoxia Code(s): J96.01 - ACUTE RESPIRATORY FAILURE WITH HYPOXIA Status: Acute Comment: Current [facility] ventilation, titrate sedation, Duonebs prn (2) Seizure Code(s): R56.9 - UNSPECIFIED CONVULSIONS Status: Acute Comment: Suspected, continue Ativan, Neurology consult, MRI brain pending, Lumbar puncture to r/o infectious etiology (3) Toxic metabolic encephalopathy Code(s): G92 - TOXIC ENCEPHALOPATHY Status: Acute Comment: Persistent and unclear etiology, check MRI brain, LP by IR, consider EEG, Consult Neurology (4) Rhabdomyolysis Code(s): M62.82 - RHABDOMYOLYSIS Status: Acute Comment: Resolving (5) Demand ischemia of myocardium Code(s): I24.8 - OTHER FORMS OF ACUTE ISCHEMIC HEART DISEASE Status: Acute Comment: Likely multifactorial, 2D echo normal, supportive mgmt (6) AMY (acute kidney injury) Code(s): N17.9 - ACUTE KIDNEY FAILURE, UNSPECIFIED Status: Acute Comment: Improved after urgent HD, no current plans for continuation of HD as renal function recovering, serial creatinine. (7) Pneumonia Code(s): J18.9 - PNEUMONIA, UNSPECIFIED ORGANISM Status: Suspected Qualifiers: Laterality: left Comment: ? community acquired with suspected gm + cocci, continue Zosyn, Duonebs , O2 - Plan continue antibiotics, social services counselor, respiratory therapy, DVT proph w/SCDs Continue pulmonary support -: MRI brain today -: LP with fluoroscopy -: Continue Zosyn -: Neurology consult today AM lab: BMP, ABG PCXR in am
[2018-06-05] MEDS: Potassium Chloride 20 MEQ TAB PO SCH (12:44)
--- NOTE | 2018-06-05 14:31 | MRI ---
MRI BRAIN NONCONTRAST: Date 06/05/18 INDICATION: Altered mental status, patient unresponsive. History of intubation. Rule out posterior reversible enc ephalopathy syndrome. FINDINGS: There is diffuse abnormal signal throughout the cerebral hemispheres bilaterally. There is associated generalized mild mass effect with effacement of the ventricular system. No shift of midline structur es. There are nonspecific foci of punctate susceptibility at each lentiform nucleus. Areas of increas ed signal on DWI series are consistent with T2 shine-through when correlating with ADC map. There is scattered paranasal sinus mucosal thickening. There are retained secretions at the nasopharynx. IMPRESSION: Diffuse parenchymal signal abnormality of the supratentorial and infratentorial brain. Involvement of the brainstem is also present. Inflammatory and infectious processes cannot be excluded on the basis of this exam. A diffuse manifestation of posterior reversible encephalopathy syndrome is a considera tion in the correct clinical context. As necessary, follow-up with contrast enhanced brain MRI, to exclude underlying enhancing pathology, and CSF analysis may prove useful. POS: [facility]
--- NOTE | 2018-06-05 15:16 | PRG-2 ---
DATE OF SERVICE: 06/05/2018 PROVIDER CODE NOTE RESIDENT: Tato Ariza M.D. TOLL OPERATOR RESIDENT: Lorenzo Zee DO. ATTENDING PHYSICIAN: Fredy Granados M.D. TIME TO CODE: 0418 hours. REASON FOR CODE: Altered mental status. CODE IN DETAIL: Patient is a 43-year-old female who was admitted for rhabdomyolysis, acute kidney injury versus new-onset end-stage renal disease and substance abuse. Per nursing staff, patient had been refusing blood draws and imaging leading up to event. States that she at the onset of the event experienced a seizure-like activity. As previously stated, code was called at 0418 hours on 06/05/2018. Initially, Ativan 2 mg IV push were administered at 04:24 to reduce patient's agitation. The son was determined that the patient was unsafe, however, was not protecting her airway. Code status was verified and she was noted to be a FULL CODE per nursing staff. A rapid sequence intubation medications of etomidate 30 mg and rocuronium 60 mg were drawn. A GlideScope with a #3 blade was brought to the bedside. RSI drugs were given fast IV push and the patient was bagged until paralyzed. Prior to initiation of drugs, patient was maintaining oxygen saturations between 99% and 100%. GlideScope was inserted in the usual fashion and landmarks were identified. Vocal cords were visualized. A 7.5 endotracheal tube was inserted in the mouth and passed through the vocal cords under direct visualization on the first attempt by Dr. Zee to the level of 23 cm at the teeth. Chest x-ray reveals at the tip of the endotracheal tube is approximately 2 cm above the level of the jeremias. At the time of intubation, bilateral lung sounds and color change capnography were noted. Labs were unable to be drawn at that time of code, as patient has poor peripheral venous access. Sound Physician on-call was present at the time of code and asked that the patient be taken to CT, as she had the study pending. Staff was instructed to perform x-ray prior to CT to verify endotracheal tube placement. Code was stopped at 0439 hours. Please see nurse' s report for further details. Dr. Granados was present for entire code including intubation. [facility]
--- NOTE | 2018-06-05 15:19 | RAD ---
FLUOROSCOPIC GUIDED LUMBAR PUNCTURE: Date: 06-05-18 History: 43-year-old with altered mental status. We were asked by Dr. Sanchez to perform a fluoroscopic guided lumbar puncture. Radiation Dosimetry: 0.4 minutes fluoroscopy; DAP 147 mGy*cm^2. Technique: The L3-4 area was prepped and draped in the usual sterile manner. The patient was under the care of a nesthesia under sedation with Propofol. A 22 gauge spinal needle was introduced into the subarachnoid space. A total of 10 ml of clear CSF wa s removed without difficulty. The needle was then removed. IMPRESSION: Successful fluoroscopically guided L3-4 lumbar puncture. POS: [facility]
[2018-06-05 15:54] LABS: CSF Source CSF; CSF, Glucose 68 mg/dl (40-70); CSF, Protein 60 mg/dL (15-40); Clarity Clear (Clear); RBC Count - Manual 775 /cumm (None Seen); Tube # 1; WBC/NonHematics Count - Manual 0 /cumm (0-5)
[2018-06-05 15:57] LABS: Color Of CSF Supernatant COLORLESS (Colorless); Tube # 2; Unspun CSF Color COLORLESS (Colorless)
[2018-06-05] MEDS ORDERED: Lorazepam 2 MG/ML VIAL SLOW IVP PRN (16:37)
[2018-06-05] MEDS ORDERED: levETIRAcetam In NaCl (Iso-Os) 1,000 MG in Premix Bag 1 BAG IVPB SCH (17:00)
[2018-06-05] MEDS: Dextrose 5 %-0.45 % NaCl 1,000 ML IV SCH (17:44)
[2018-06-05] MEDS ORDERED: Magnesium Sulfate 4 GM in Sodium Chloride 0.9% 250 ML 250 ML IVPB SCH (18:00)
[2018-06-05] MEDS: Propofol 1,000 MG/100 ML VIAL IV PRN ×2 (20:18→23:14)
[2018-06-05] MEDS ORDERED: Norepinephrine 8 MG/250 ML BAG IVPB PRN (20:30)
--- NOTE | 2018-06-05 22:02 | RAD ---
PORTABLE AP CHEST X-RAY 06/05/18 HISTORY: Confirmation of central line placement. COMPARISON: 06/05/18 at 357 hours. Endotracheal tube remains in place and unchanged in position. There has been interval placement of a nasogastric tube with the tip overlying the expected location of the distal esophagus and the nasogas tric tube should be further advanced. There also has been interval placement of a left internal jugul ar vein central venous catheter with the tip overlying the expected location of the proximal SVC. No pneumothorax or pleural effusion is seen. There is mild elevation of right hemidiaphragm with atelect asis at the right lung base. There is mild prominent perihilar interstitial densities. Pacing device overlying the chest has been removed. Surgical clips overlie the epigastric region. No other interval change. IMPRESSION: 1. Endotracheal tube stable in position. 2. Nasogastric tube noted in place with tip overlying the distal esophagus. Nasogastric tube sophia uld be advanced. 3. Left internal jugular vein central venous catheter noted in place with tip overlying the expe cted location of the proximal SVC. 4. Mild increase in perihilar interstitial densities some of which is related to the depth of in spiration and portable technique, but mild pulmonary edema or infectious process is a possibility. POS: MODESTA
--- NOTE | 2018-06-06 00:15 | CON ---
DATE OF CONSULTATION: 06/05/2018 REFERRING PROVIDER: Dr. Martha Quinteros. REASON FOR CONSULTATION: Status epilepticus. HISTORY OF PRESENT ILLNESS: Ms. Hopkins is a pleasant 43-year-old female who has been con cerned for evaluation of status epilepticus. History is obtained from patient's medical chart. Alex stone, patient had presented on 05/30/2018. After she had a syncopal event, she was also noted to cory paz complaining of shortness of breath and had fell multiple times over the past 2 weeks. She was bein g treated for pneumonia and acute kidney injury. She was in ICU until yesterday when she was transfe rred to general medical floor. This morning, she had an episode of passing out followed by general ed tonic-clonic convulsions. Dr. Quinteros had taken care of the patient who noted patient was in sta tus epilepticus. He had given her Keppra and Dilantin loading-dose along with placing her on propofo l infusion, which finally did help control her seizures. PAST MEDICAL HISTORY, PAST SURGICAL HISTORY, FAMILY HISTORY, SOCIAL HISTORY: Could not be obtained. CURRENT MEDICATIONS: Please review MAR. ALLERGIES: Include CODEINE. REVIEW OF SYSTEMS: Unable to perform. PHYSICAL EXAMINATION: VITAL SIGNS: Blood pressure of 87/37, pulse of 72, temperature of 98.1, respirations of 10 on mechan ical ventilation. GENERAL: Intubated, sedated with propofol, female in no apparent distress. RESPIRATORY: Clear to auscultation bilaterally. CARDIOVASCULAR: Regular rate and rhythm. NEUROLOGIC: Mental status: Patient is intubated and sedated with propofol. She does not respond to verbal or noxious stimuli. Cranial nerves: Pupils are 3 mm and reactive. There is a positive corn eal reflexes bilaterally. She does breathe over the ventilator machine. She does have positive coug h and gag reflex. Motor exam showed spastic catch in both upper extremities with 3-5 beat clonus in both lower extremities at the ankle. She does not withdraw to noxious stimuli in both upper and lowe r extremities. Deep tendon reflexes, brisk reflexes in both upper and lower extremities. Babinski a nd plantar responses extensor bilaterally. Amina's signs are negative bilaterally. Gait and Romb erg coordination could not be tested. LABORATORY DATA: Reviewed, which included CBC, CMP, CSF WBC, glucose, protein, cryptococcal antigen, which is significant for hemoglobin 10.8, hematocrit 32.6. Potassium of 3.0, magnesium of 1.0, tota l bilirubin of 1.4, otherwise unremarkable. CSF WBC was 0, protein was 60, and glucose of 68. IMAGING STUDIES: MRI brain without contrast was reviewed, which showed extensive diffuse parenchymal signal abnormality of the supratentorial and infratentorial brain. IMPRESSION: 1. Diffuse signal alteration in the brain. 2. Status epilepticus. 3. Metabolic encephalopathy. Ms. Hopkins is a 43-year-old female who presented with the pneumonia and during admission, she was noted to have seizure that resulted in status epilepticus. Her MRI brain shows diffuse sign al abnormality. This can be seen in patient with toxic metabolic encephalopathy. It can also be see n in autoimmune encephalopathy. At this time, I will recommend obtaining EM panel along with an MRI brain with contrast. I agree with continuing on Keppra 1000 mg b.i.d. We will continue to observe her progress and provide further recommendations at that time. Thank you for consultation.
--- NOTE | 2018-06-06 02:25 | OP-2 ---
DATE OF SERVICE: 06/05/2018 PROCEDURE: A left internal jugular central line with ultrasound guidance. INDICATION: Hypotension, need for pressors. PRIMARY RESIDENT: Ignacio Méndez DO. ASSISTING RESIDENT: Tato Ariza M.D. ATTENDING PHYSICIAN: Dr. Granados. CONSENT: Consent was obtained from prior to procedure. Indication, risks, and benefits were explained at length. PROCEDURE SUMMARY: A timeout was performed. Sterile technique was observed throughout the procedure or a surgical cap, mask with protective eyewear, full gown, and sterile gloves throughout the procedure. The patient was placed in the Trendelenburg position. Left chest and neck region were prepped using chlorhexidine scrub and draped in sterile fashion. The medial and lateral heads of the sternocleidomastoid muscles were identified as was the carotid pulse. The internal jugular vein was identified using the ultrasound. Using real-time had a plain guidance, an introducer needle was inserted into the internal jugular vein under direct ultrasound easily visualization. Venous blood was withdrawn. The syringe was removed and the guidewire was advanced through the introducer needle. The guidewire was visualized in the internal jugular vein by ultrasound. A small incision was made at the skin surface with a scalpel and the introducer needle was exchanged for a dilator over the wire. After the appropriate dilation was obtained, the dilator was exchanged over the wire for a triple-lumen venous catheter. The wire was removed and the catheter was sutured in place at 15 cm. A sterile SorbaView shield was then placed over the catheter at the insertion site. The patient tolerated the procedure without any hemodynamic compromise. At time of the procedure completion, all ports were aspirated and flushed properly. Postprocedure x-ray was obtained. This catheter was placed appropriately in the right atrium. ESTIMATED BLOOD LOSS: 15 mL. MTDD
[2018-06-06] MEDS: Propofol 1,000 MG/100 ML VIAL IV PRN ×5 (03:32→21:13)
[2018-06-06] MEDS: Piperacillin/Tazobactam 2.25 GM, Admixture Fee 1 EACH in Sodium Chloride 0.9% 100 ML IVPB SCH ×3 (05:06→21:15)
[2018-06-06] MEDS: Dextrose 5 %-0.45 % NaCl 1,000 ML IV SCH (05:14)
[2018-06-06 05:17] LABS: Anion Gap 11 mmol/L (10-20); BUN (Urea Nitrogen) 6 mg/dL (7.0-18.7); Calc. Creatinine Clearance 135 mL/min (70-130); Calcium 7.9 mg/dL (7.8-10.44); Carbon Dioxide 34 mmol/L (22-29); Chloride 101 mmol/L (98-107); Estimated GFR-MDRD 90; Glucose 104 mg/dL (70-105); Magnesium 1.7 mg/dL (1.6-2.6); Sodium 143 mmol/L (136-145)
[2018-06-06 05:20] LABS: Potassium 2.8 mmol/L (3.5-5.1)
[2018-06-06] MEDS ORDERED: Furosemide 20 MG/2 ML VIAL SLOW IVP SCH (06:00)
[2018-06-06 07:08] LABS: Actual Bicarbonate (HCO3a) 30.5 mEq/L (22-28); Base Excess (BEa) 6.2 mEq/L (-2.0 to +3.0); Calcium, Ionized 1.1 mmol/L (1.12-1.30); Hemoglobin (Hb) 9.9 g/dL (12.0-16.0); O2 Tension (PaO2) 81.4 mmHg (80.0-100.0); Puncture Site LRA; pH, Arterial 7.47 (7.35-7.45)
[2018-06-06] MEDS: FLUoxetine HCl 20 MG CAP PO SCH (09:15)
[2018-06-06] MEDS ORDERED: Sodium Bicarbonate Tab 325 MG TAB PER TUBE PRN (09:15)
[2018-06-06] MEDS ORDERED: Pancrelipase DR 12000 1 CAP FS PRN (09:15)
[2018-06-06] MEDS: Heparin 5,000 UNITS/ML VIAL SC SCH ×2 (09:15→21:14)
[2018-06-06] MEDS: levETIRAcetam In NaCl (Iso-Os) 1,500 MG in Premix Bag 1 BAG IVPB SCH ×2 (09:16→21:14)
[2018-06-06] MEDS: Atorvastatin Calcium 20 MG TAB PO SCH (09:20)
[2018-06-06] MEDS ORDERED: Magnesium Sulfate 4 GM in Sodium Chloride 0.9% 250 ML 250 ML IVPB SCH (09:45)
[2018-06-06] MEDS ORDERED: Dextrose 5 %-0.45 % NaCl 1,000 ML IV SCH (09:47)
[2018-06-06 09:49] LABS: Actual Bicarbonate (HCO3a) 29.7 mEq/L (22-28); Base Excess (BEa) 6.2 mEq/L (-2.0 to +3.0); CO2 Tension 38.7 mmHg (35.0-45.0); O2 Tension (PaO2) 78.7 mmHg (80.0-100.0)
[2018-06-06 09:50] LABS: ALV-art Gradient 65.435 (0-20); Hemoglobin (Hb) 9.8 g/dL (12.0-16.0); Puncture Site LRA
--- NOTE | 2018-06-06 09:56 | PRG ---
DATE OF SERVICE: 06/06/2018 SERVICE: PULMONARY MEDICINE. INTERVAL HISTORY: The patient is doing poorly neurologically. Even though she is on 50 mcg of propo fol per hour, requiring a small dose of pressors in order to maintain blood pressure, she is still castañeda ving breakthrough activity. As such, we are in the process of initiating her on a Versed drip. Mult iple adjustments have been made to the ventilator and because I have a feeling we are going to be put ting her down into a medically induced coma to a level that will decrease her respiratory drive. She cannot provide any additional elements of the history obviously. Neurology is following her and we were planning on doing an MRI with contrast today. PHYSICAL EXAMINATION: VITAL SIGNS: Afebrile, pulse 67, blood pressure 115/56, respirations 13, saturation 95% on 27% FiO2 and a PEEP of 5. HEENT: Normocephalic, atraumatic. Sclerae are white, conjunctivae pink. Oral mucosa is moist witho ut oral lesions. Pupils are equal, round, and reactive. LUNGS: Excellent air entry. Rhonchi and crackles are present. No wheezing or prolonged expiratory phase is evident. HEART: Normal rate, regular. ABDOMEN: Soft, nontender and nondistended. Bowel sounds are positive. MUSCULOSKELETAL: No cyanosis or clubbing. There is diffuse 1-2+ pitting throughout. GENITOURINARY: Powell catheter in place. NEUROLOGIC: The patient is in a medically induced coma at this point. There are no outward signs of seizure activity. LABORATORY DATA: WBC 6.3, hemoglobin 10.8, platelets 106,000. Potassium 2.8. Basic metabolic profi le is otherwise unremarkable. Magnesium is 1.7. Blood cultures remain negative to date. IMAGING DATA: Chest x-ray demonstrates stable endotracheal tube. NG tube is in place overlying the distal esophagus. Left IJ central venous catheter is in good position. Perihilar interstitial infil trates are suggestive of mild pulmonary edema. ASSESSMENT: 1. Status epilepticus. 2. Acute hypoxic respiratory failure. 3. Chronic obstructive pulmonary disease without current exacerbation. 4. Substance abuse. 5. Hypokalemia. PLAN: We will once again replace the potassium and magnesium. We will initiate a Versed drip to put her brainwave activity down flat for the next 48 hours. After this, we will discontinue sedation an d see whether or not if the seizures recur. We are going to initiate tube feeds because I am not lik gita extubate her in the next 24-48 hours. Multiple adjustments have been made to the ventilator in o rder to take over more work of breathing in preparation for her deeper coma. An ABG will be performe d. I will KVO her IV fluids. Intermittent doses of Lasix will be considered, but I will hold off on that for the time being. CRITICAL CARE TIME: 30 minutes.
[2018-06-06] MEDS: Midazolam HCl 2 mg/2 ml Vial ONE ×2 (12:50→12:51)
[2018-06-06 14:33] LABS: Potassium 3.5 mmol/L (3.5-5.1)
--- NOTE | 2018-06-06 15:18 | MRI ---
POSTCONTRAST BRAIN MRI: COMPARISON: Reference is made to noncontrast brain MRI of previous day. CLINICAL HISTORY: Altered mental status. Unresponsive patient. Clinical evaluation with concern for posterior reversi ble encephalopathy syndrome. FINDINGS: Postcontrast imaging of the brain reveals no evidence of a pathologically enhancing intraaxial mass. Low T1 signal at each occipital lobe is correlative to the previously described areas of edema. Sca ttered paranasal sinus mucosal thickening present. IMPRESSION: 1. No associated enhancing intraaxial mass is present. 2. Redemonstration of vasogenic edema. Findings telephoned to the patient's physician, Dr. Shanelle Tracy, at the time of dictation 1331 hours . CODE CR POS: NEELIMA
--- NOTE | 2018-06-06 16:25 | PDOC.PN ---
- Subjective Encounter Start Date: 06/06/18 Encounter Start Time: 16:00 Subjective: f/u for acute resp failure, seizure activity and MRI showing diffuse -: edema and ?PRES. Remains on mech vent, Keppra, Diprivan and Benzo's. - Objective MAR Reviewed: Yes Vital Signs & Weight: Vital Signs (12 hours) Temp Pulse Resp BP Pulse Ox 06/06/18 15:13 66 121/62 06/06/18 14:00 10 L 06/06/18 13:30 55 L 121/64 06/06/18 13:29 56 L 8 L 99 06/06/18 12:00 99.1 F 8 L 06/06/18 11:00 99.1 F 06/06/18 10:55 78 83/40 L 06/06/18 10:00 9 L 06/06/18 08:00 99.2 F 78 9 L 96 06/06/18 07:00 68 115/46 L 06/06/18 06:55 68 7 L 95 06/06/18 06:00 9 L Weight Admit Weight 189 lb 3.2 oz Weight 183 lb 14.4 oz Most Recent Monitor Data Heart Rate from ECG 80 NIBP 183/86 NIBP BP-Mean 121 Respiration from ECG 14 SpO2 96 I&O: 06/05/18 06/06/18 06/07/18 06:59 06:59 06:59 Intake Total 1304 2320 150 Output Total 450 2430 675 Balance 854 110 525 Result Diagrams: 06/05/18 05:10 06/06/18 13:55 Additional Labs: Microbiology 05/30/18 14:22 Venous blood - Left Arm Blood Culture - Preliminary NO GROWTH AT 48 HOURS 05/30/18 14:20 Venous blood - Right Hand Blood Culture - Preliminary NO GROWTH AT 48 HOURS Laboratory Tests 05/30/18 05/30/18 05/30/18 14:27 14:27 16:12 Hgb 11.5 L Plt Count Neutrophils % (Manual) Potassium Carbon Dioxide Creatinine Total Bilirubin AST ALT Alkaline Phosphatase Ammonia Creatine Kinase 9148 H TSH 3rd Generation 0.4675 05/31/18 05/31/18 05/31/18 04:17 04:17 04:17 Hgb 10.7 L Plt Count 173 Neutrophils % (Manual) 93 H Potassium 3.5 Carbon Dioxide Creatinine 2.33 H Total Bilirubin AST ALT Alkaline Phosphatase Ammonia Creatine Kinase 3992 H TSH 3rd Generation 06/01/18 06/01/18 06/02/18 04:38 04:38 04:30 Hgb 8.9 L Plt Count 114 L Neutrophils % (Manual) 86 H Potassium 3.2 L Carbon Dioxide Creatinine 1.78 H 1.36 H Total Bilirubin AST ALT Alkaline Phosphatase Ammonia Creatine Kinase 1226 H 363 H TSH 3rd Generation 06/04/18 06/04/18 06/05/18 03:58 17:09 05:10 Hgb Plt Count Neutrophils % (Manual) Potassium 3.0 L Carbon Dioxide 32 H Creatinine Total Bilirubin 1.4 H AST 17 ALT 23 Alkaline Phosphatase 73 Ammonia 31 Creatine Kinase TSH 3rd Generation 06/05/18 05:10 Hgb Plt Count Neutrophils % (Manual) Potassium Carbon Dioxide Creatinine Total Bilirubin AST ALT Alkaline Phosphatase Ammonia Creatine Kinase 142 TSH 3rd Generation EEG - burst/suppression pattern Radiology Reviewed by me: Yes (MRI brain - diffuse vasogenic edema) EKG Reviewed by me: Yes (Tele - SR) Phys Exam - Physical Examination sedate, unresponsive, no seizure activity noted on clinical exam ETT in place HEENT: oral pharynx no lesions Neck: no nodes, no JVD, supple Respiratory: no wheezing, no rales, no rhonchi, clear to auscultation bilateral Cardiovascular: RRR, no significant murmur, no rub, gallop Gastrointestinal: soft, no distention, positive bowel sounds mild peripheral edema Musculoskeletal: pulses present unresponsive on [facility] vent, sedation Skin: no rash, normal turgor, cap refill <2 seconds Deviation from normal: Powell with [place] clear urine Dx/Plan (1) Acute respiratory failure with hypoxia Code(s): J96.01 - ACUTE RESPIRATORY FAILURE WITH HYPOXIA Status: Acute Comment: Current [facility] ventilation, titrate sedation, Duonebs prn (2) Seizure Code(s): R56.9 - UNSPECIFIED CONVULSIONS Status: Acute Comment: Continue Ativan, Diprivan and Keppra, add Dilantin, Neurology consult appreciated, MRI brain showing diffuse vasogenic edema, Lumbar puncture to r/o infectious etiology pending (3) Toxic metabolic encephalopathy Code(s): G92 - TOXIC ENCEPHALOPATHY Status: Acute Comment: Persistent and unclear etiology, check MRI brain, LP by IR, continuous EEG showing burst/ suppression pattern, Consult Neurology (4) Rhabdomyolysis Code(s): M62.82 - RHABDOMYOLYSIS Status: Acute Comment: Resolving (5) Demand ischemia of myocardium Code(s): I24.8 - OTHER FORMS OF ACUTE ISCHEMIC HEART DISEASE Status: Acute Comment: Likely multifactorial, 2D echo normal, supportive mgmt (6) AMY (acute kidney injury) Code(s): N17.9 - ACUTE KIDNEY FAILURE, UNSPECIFIED Status: Acute Comment: Improved after urgent HD, no current plans for continuation of HD as renal function recovering, serial creatinine. (7) Pneumonia Code(s): J18.9 - PNEUMONIA, UNSPECIFIED ORGANISM Status: Suspected Qualifiers: Laterality: left Comment: ? community acquired with suspected gm + cocci, continue Zosyn, Duonebs , O2 (8) Hypokalemia Code(s): E87.6 - HYPOKALEMIA Status: Acute Comment: KCL replacement, CCU electrolyte protocol - Plan continue antibiotics, social worker assistant, respiratory therapy, DVT proph w/SCDs Continue mech ventilation with SIMV -: Add Dilantin 1000mg IV load then 100mg TID -: Continue Diprivan for induced coma -: Continue Zosyn -: Await CSF cx, HSV pending, check HIV * AM lab: BMP, ABG * PCXR in am
[2018-06-06] MEDS: Pantoprazole 40 MG VIAL IVP SCH (21:14)
[2018-06-07] MEDS: Fosphenytoin Sodium 100 MG in Sodium Chloride 0.9% 50 ML IVPB SCH ×2 (00:11→10:04)
[2018-06-07] MEDS: Propofol 1,000 MG/100 ML VIAL IV PRN ×4 (00:11→12:25)
[2018-06-07] MEDS: Piperacillin/Tazobactam 2.25 GM, Admixture Fee 1 EACH in Sodium Chloride 0.9% 100 ML IVPB SCH ×2 (05:00→15:10)
[2018-06-07 05:02] LABS: Anion Gap 11 mmol/L (10-20); BUN (Urea Nitrogen) 6 mg/dL (7.0-18.7); Calc. Creatinine Clearance 143 mL/min (70-130); Calcium 7.8 mg/dL (7.8-10.44); Carbon Dioxide 29 mmol/L (22-29); Chloride 105 mmol/L (98-107); Estimated GFR-MDRD Greater than 90; Glucose 89 mg/dL (70-105); Potassium 3.7 mmol/L (3.5-5.1); Sodium 141 mmol/L (136-145)
[2018-06-07] MEDS ORDERED: Lacosamide 200 MG in Sodium Chloride 0.9% 50 ML IVPB SCH (09:00)
[2018-06-07] MEDS: Atorvastatin Calcium 20 MG TAB PO SCH (09:58)
[2018-06-07] MEDS: FLUoxetine HCl 20 MG CAP PO SCH (09:58)
[2018-06-07] MEDS: Heparin 5,000 UNITS/ML VIAL SC SCH (09:59)
[2018-06-07] MEDS: levETIRAcetam In NaCl (Iso-Os) 1,500 MG in Premix Bag 1 BAG IVPB SCH (09:59)
[2018-06-07] MEDS: Pantoprazole 40 MG VIAL IVP SCH (09:59)
[2018-06-07 11:47] VITALS: BMI 31.4
--- NOTE | 2018-06-07 11:48 | PDOC.PN ---
- Subjective Encounter Start Date: 06/07/18 Encounter Start Time: 11:46 Ms. Hopkins was seen today in follow-up of status epilepticus. She is intubated and sedated. - Objective MAR Reviewed: Yes Vital Signs & Weight: Vital Signs (12 hours) Temp Pulse Resp BP Pulse Ox 06/07/18 10:58 86 117/52 L 06/07/18 06:39 67 111/50 L 06/07/18 06:38 67 10 L 97 06/07/18 06:00 9 L 06/07/18 04:00 99.5 F 9 L 06/07/18 03:33 69 06/07/18 02:00 8 L 06/07/18 00:00 98.9 F 8 L Weight Admit Weight 189 lb 3.2 oz Weight 182 lb 12.211 oz Most Recent Monitor Data Heart Rate from ECG 68 NIBP 111/50 NIBP BP-Mean 83 Respiration from ECG 11 SpO2 97 I&O: 06/06/18 06/07/18 06/08/18 06:59 06:59 06:59 Intake Total 2320 2478.2 Output Total 2430 2300 Balance -110 178.2 Result Diagrams: 06/05/18 05:10 06/07/18 04:30 Phys Exam - Physical Examination HEENT: PERRLA Respiratory: no wheezing, no rales, no rhonchi, clear to auscultation bilateral Cardiovascular: RRR, no significant murmur, no rub Gastrointestinal: soft, non-tender, positive bowel sounds Musculoskeletal: edema present trace pedal edema Dx/Plan (1) Status epilepticus Code(s): G40.901 - EPILEPSY, UNSP, NOT INTRACTABLE, WITH STATUS EPILEPTICUS Status: Acute (2) AMY (acute kidney injury) Code(s): N17.9 - ACUTE KIDNEY FAILURE, UNSPECIFIED Status: Acute Comment: Improved after urgent HD, no current plans for continuation of HD as renal function recovering, serial creatinine. (3) Rhabdomyolysis Code(s): M62.82 - RHABDOMYOLYSIS Status: Acute Comment: Resolving (4) Toxic metabolic encephalopathy Code(s): G92 - TOXIC ENCEPHALOPATHY Status: Acute Comment: Persistent and unclear etiology, check MRI brain, LP by IR, continuous EEG showing burst/ suppression pattern, Consult Neurology (5) Acute respiratory failure with hypoxia Code(s): J96.01 - ACUTE RESPIRATORY FAILURE WITH HYPOXIA Status: Acute Comment: Current [facility] ventilation, titrate sedation, Duonebs prn (6) Hypertension Code(s): I10 - ESSENTIAL (PRIMARY) HYPERTENSION Status: Chronic Qualifiers: Hypertension type: essential hypertension Qualified Code(s): I10 - Essential (primary) hypertension Comment: Low , will hold home meds. - Plan * Ms. Hopkins was admitted on 05/30/2018 with complaints of shortness of breath. She was also found at that time to be in acute renal failure and Rhabdomyolysis, with a creatinine of about 5. She was treated for the acute respiratory distress and her creatinine has since improved to baseline. However a few days into her admission she suffered a seizure, and she required intubation to protect her airway. She had a MRI performed demonstarting diffuse abnormalities- ? Pres vs. Inflammatory, infectious etiology. * She continues to have seizure activity despite Keppra, Dipravan, and Propofol * Dr. Lui has added Vimpat * Acute renal failure- resolved * HTN- blood pressure is controlled * Acute respiratory failure- continue vent support as per PCCM, and consider de- escalating antibiotics soon * Nutritional support- Tube feeds ,
[2018-06-07 12:50] VITALS: BP 104/54
--- NOTE | 2018-06-07 13:31 | PRG ---
DATE OF SERVICE: 06/07/2018 SERVICE: PULMONARY MEDICINE. INTERVAL HISTORY: The patient is doing poorly from a neurologic standpoint. She has continued to castañeda ve ongoing breakthrough seizure activity. She is being watched on the EEG monitor. We have titrated up antiepileptic drugs including fosphenytoin, Keppra, Versed, and propofol. Despite this, she has persistent episodic disease. She cannot provide any additional elements of the history. She has no outward signs of seizure activity. PHYSICAL EXAMINATION: VITAL SIGNS: Afebrile, pulse 69, blood pressure 104/54, respirations 15, saturation 96% on room air. GENERAL: The patient is comatose. HEENT: Normocephalic, atraumatic. Sclerae are white, conjunctivae pink. Oral mucosa is moist witho ut lesions. LUNGS: Decent air entry. There is no prolonged expiratory phase, wheezing, rhonchi or crackles. HEART: Normal rate, regular. ABDOMEN: Soft, nontender and nondistended. Bowel sounds are positive. MUSCULOSKELETAL: No cyanosis or clubbing. There is 1+ pitting throughout. GENITOURINARY: Powell catheter in place. LABORATORY DATA: WBC 6.3, hemoglobin 10.8, platelets 106,000 and roughly stable. Basic metabolic pr ofile is completely unremarkable. CRP is 5.47, ESR is unremarkable. Total protein in the CSF is tavo vated. There are 775 red blood cells, but 0 white blood cells. Urine drug screen is completely nonr eactive. Serologies including EM are currently pending. Blood cultures x2 and CSF culture is negat tyrell. Cryptococcal antigen is negative. IMAGING DATA: Repeat MRI of the brain demonstrates vasogenic edema, but no associated intraaxial mas s. ASSESSMENT: 1. Status epilepticus, persistent despite aggressive titration of antiepileptic drugs. 2. Acute hypoxic respiratory failure. 3. Chronic obstructive pulmonary disease without current exacerbation. 4. Substance abuse. 5. Hypokalemia, resolved. 6. Pulmonary edema versus community-acquired pneumonia, status post full course of antibiotic. PLAN: We are going to discontinue all antibiotics today. Unfortunately, we will not have the EEG ca pabilities over the weekend and into next week. As such, we will need to make preparations to transf er to a higher level of care that can continue to follow the patient. Small adjustments have been ma de to the ventilator to maximize patient comfort. We will continue her Levophed support of her blood pressure while she is on these high rates of medications to try to suppress seizure activity. Multi ple serologies are currently pending. If she remains in this ICU, obviously continue to follow.
[2018-06-07 13:36] LABS: VDRL, CSF Non Reactive (Non Rea:<1:1)
[2018-06-07] MEDS ORDERED: Lorazepam 2 MG/ML VIAL SLOW IVP SCH (14:30)
[2018-06-07 20:11] VITALS: TEMP 99.3
[2018-06-08 16:28] LABS: ANA Symphony (Qualitative) Negative (Negative); dsDNA IgG Antibody 0.5 IU/mL (<10 Negative)
[2018-06-08 23:06] LABS: HSV 2 - DNA Negative (Negative)
== END 2018-06-07 15:40 | disposition critical access hospital (66) | DRG 189 ==
LOC: ERS 13:56 → CCU 17:11 → T4-A 06-02 10:15 → CCU 06-05 04:43
PROVIDERS: ADMIT Internal Medicine; ATTEND Internal Medicine
PROC: 009U3ZX Drainage of Spinal Canal, Percutaneous Approach, Diagnostic (ICD-10-PCS; principal; 2018-06-05)
PROC: B01B1ZZ Fluoroscopy of Spinal Cord using Low Osmolar Contrast (ICD-10-PCS; 2018-06-05)
PROC: 02H633Z Insertion of Infusion Device into Right Atrium, Percutaneous Approach (ICD-10-PCS; 2018-06-05)
DX: J96.01 Acute respiratory failure with hypoxia (principal); G92 Toxic encephalopathy; J18.9 Pneumonia, unspecified organism; E87.2 Acidosis; N17.9 Acute kidney failure, unspecified; I24.8 Other forms of acute ischemic heart disease; T79.6XXA Traumatic ischemia of muscle, initial encounter; W19.XXXA Unspecified fall, initial encounter; Y92.89 Other specified places as the place of occurrence of the external cause; I07.1 Rheumatic tricuspid insufficiency; F11.10 Opioid abuse, uncomplicated; I37.1 Nonrheumatic pulmonary valve insufficiency; F17.210 Nicotine dependence, cigarettes, uncomplicated; D64.9 Anemia, unspecified; I10 Essential (primary) hypertension; J44.9 Chronic obstructive pulmonary disease, unspecified; G40.901 Epilepsy, unspecified, not intractable, with status epilepticus; E87.6 Hypokalemia
CPT/HCPCS: 36415; 36556; 51702; 62270; 70450; 70551; 71045; 80048; 80053; 80306; 81003; 81015; 82140; 82164; 82533; 82550; 82553; 82805; 82945; 83735; 83880; 84100; 84157; 84443; 84484; 85007; 85025; 85027; 85610; 85652; 85730; 86038; 86140; 86225; 86592; 86612; 86635; 86698; 86704; 86706; 86803; 87040; 87070; 87205; 87340; 87529; 87899; 89051; 90935; 92950; 93005; 93306; 94002; 94003; 94640; 94660; 95816; 95819; 95953; 96365; 96367; 96368; 99292; A4216; C9113; G0257; J0171; J1642; J1644; J1940; J1953; J2060; J2250; J2405; J2543; J2704; J2920; J3370; J3475; J7050; J7620; Q2009

== ENCOUNTER 2019-03-08 21:30 | Emergency (ER) | payer BC, SELFPAY | END 2019-03-08 22:11 | disposition home or self-care (01) | LOC: ERS 21:30 | DX: N76.4 Abscess of vulva (principal); I11.0 Hypertensive heart disease with heart failure; I50.9 Heart failure, unspecified; F17.210 Nicotine dependence, cigarettes, uncomplicated; F31.9 Bipolar disorder, unspecified; F41.9 Anxiety disorder, unspecified | CPT/HCPCS: 99282 ==

== ENCOUNTER 2019-09-26 20:46 | Emergency (ER) | payer SELFPAY ==
[~2019-09-26 20:46] MED LIST: Iopamidol-370 76% 500 ML 1 ML ONE
[2019-09-26] MEDS ORDERED: Dexamethasone 10 MG/ML VIAL ONE (21:42)
--- NOTE | 2019-09-26 21:51 | RAD ---
EXAM: CHEST ONE VIEW HISTORY: 4 days of shortness of breath. Dyspnea. COMPARISON: 06/05/2018. FINDINGS: Lines and tubes noted in place on the prior study have been removed. Cardiac silhouette is magnified by projection. There is mild increase in perihilar interstitial densities bilaterally but greater on the left. Findings may be related to mild asymmetric pulmonary edema versus infectious process. Th ere is no consolidation or pleural fluid seen. No other interval change. IMPRESSION: Mild increase in perihilar interstitial densities slightly asymmetrically greater on the left. Findin gs may be related to mild asymmetric pulmonary edema versus infectious process. Follow-up evaluation is recommended to ensure resolution.
[2019-09-26] MEDS ORDERED: Magnesium 2 GM/50 ML BAG (IN WATER) ONE (21:57)
[2019-09-26 22:04] LABS: #Eosinphils 0.2 thou/uL (0.0-0.7); #Lymphocytes 1.2 thou/uL (1.20-3.40); #Monocytes 0.8 thou/uL (0.11-0.59); %Basophils 0.5 % (0.0-1.0); %Eosinophils 2.4 % (0.0-10.0); %Lymphocytes 16.3 % (21.0-51.0); %Monocytes 10.9 % (0.0-10.0); %Neutrophils 69.9 % (42.0-75.0); Hemoglobin 11.9 g/dL (12.0-16.0); Mean Corpuscular HGB CONC 32.9 g/dL (32.0-36.0); Mean Corpuscular Hemoglobin 29.1 pg (27.0-31.0); Mean Corpuscular Volume 88.5 fL (78.0-98.0); Mean Platelet Volume 9.6 fL (7.4-10.4); Platelet Count 174 thou/uL (130-400); RBC Distribution Width 14.6 % (11.5-14.5); White Blood Cell (WBC) Count 7.1 thou/uL (4.8-10.8)
[2019-09-26 22:24] LABS: ALT (SGPT) 12 U/L (8-55); AST (SGOT) 15 U/L (5-34); Albumin 3.7 g/dL (3.5-5.0); Alkaline Phosphatase 88 U/L (40-110); Anion Gap 17 mmol/L (10-20); BUN (Urea Nitrogen) 11 mg/dL (7.0-18.7); Bilirubin, Total 0.8 mg/dL (0.2-1.2); CK (CPK) 146 U/L (29-168); Calc. Creatinine Clearance 0 mL/min (70-130); Calcium 8.3 mg/dL (7.8-10.44); Carbon Dioxide 21 mmol/L (22-29); Chloride 102 mmol/L (98-107); Estimated GFR-MDRD 76; Globulin 2.3 g/dL (2.4-3.5); Glucose 150 mg/dL (70-105); Lipase 13 U/L (8-78); Potassium 3.7 mmol/L (3.5-5.1); Sodium 136 mmol/L (136-145)
[2019-09-26] MEDS ORDERED: Fentanyl 100 MCG/2 ML VIAL ONE (22:33)
--- NOTE | 2019-09-26 23:17 | CT ---
CT ANGIOGRAM THORAX WITH IV CONTRAST AND 3-D RECONSTRUCTIONS CLINICAL INDICATION: Shortness of breath with difficulty taking deep breaths. Dizziness. COMPARISON: 05/05/2018 FINDINGS: Pulmonary arteries: The main pulmonary artery is mildly dilated with respect to the adjacent thoracic aorta suggesting element of pulmonary artery hypertension. No filling defect is seen within the pulmonary arteries to suggest a pulmonary embolus. Aorta: The aorta is normal in caliber without evidence of an aortic dissection. Lungs: There are ground glass densities seen throughout the lungs bilaterally greater on the left wit h a rounded focal area of consolidation seen in the left lower lobe measuring 2.6 cm. There is a tiny gas density seen at the superior margin of this focal rounded consolidation which could be relat ed to a very tiny cavitation. Findings are worrisome for infectious process with focal pneumonia in the left lower lobe. Follow-up to complete resolution is recommended. There is minimal interstitial t hickening present on the left. The more inferior aspect of the lower lobes are not imaged on this exam. Mediastinum: There is soft tissue density in the anterior superior mediastinum which was not present on the prior exam and may be related to prominent lymph nodes likely reactive in origin. However, follow-up is recommended. Thyroid gland: Normal CT appearance. Osseous structures: No acute process. Chest wall: No abnormality visualized. IMPRESSION: 1. Groundglass densities bilaterally greater on the left with focal rounded area of consolidation in the left lower lobe. Findings are worrisome for infectious process/pneumonia. Follow-up to complete resolution is recommended. Atypical infectious process is a possibility. 2. Mild enlargement of the main pulmonary artery suggesting an element of pulmonary artery hypertensi on. No CT findings to suggest a pulmonary embolus are seen. 3. Motion artifact in the upper mediastinum, but there are areas of soft tissue density seen which ar e represented interval change compared to the prior study and are likely related to mildly enlarged lymph nodes which are probably reactive in origin. However, follow-up evaluation is recommended.
== END 2019-09-26 23:56 | disposition home or self-care (01) ==
LOC: ERS 20:46
DX: J18.9 Pneumonia, unspecified organism (principal); I11.0 Hypertensive heart disease with heart failure; I50.9 Heart failure, unspecified; F17.210 Nicotine dependence, cigarettes, uncomplicated
CPT/HCPCS: 71045; 71275; 80053; 82550; 83690; 83880; 84484; 85025; 85379; 93005; 94640; 96365; 96375; J1100; J3010; J3475; J7620; Q9967

== ENCOUNTER 2022-07-22 16:24 | Emergency (ER) | payer BC ==
[2022-07-22] MEDS ORDERED: Acetaminophen 500 MG TAB ONE (16:51)
[2022-07-22 17:16] LABS: #Eosinphils 0.1 thou/uL (0.0-0.7); #Lymphocytes 1.4 thou/uL (1.20-3.40); #Monocytes 0.8 thou/uL (0.11-0.59); #Neutrophils 4.4 thou/uL (1.40-6.50); %Basophils 0.2 % (0.0-1.0); %Lymphocytes 20.9 % (21.0-51.0); %Monocytes 12.3 % (0.0-10.0); %Neutrophils 65.6 % (42.0-75.0); Hemoglobin 13.6 g/dL (12.0-16.0); Mean Corpuscular HGB CONC 34.4 g/dL (32.0-36.0); Mean Corpuscular Hemoglobin 31.2 pg (27.0-31.0); Mean Corpuscular Volume 90.8 fL (78.0-98.0); Mean Platelet Volume 9.1 fL (7.4-10.4); Platelet Count 253 thou/uL (130-400); RBC Distribution Width 13.9 % (11.5-14.5); Red Blood Cell (RBC) Count 4.37 mill/uL (4.20-5.40); White Blood Cell (WBC) Count 6.7 thou/uL (4.8-10.8)
[2022-07-22 17:35] LABS: ALT (SGPT) 8 U/L (8-55); AST (SGOT) 22 U/L (5-34); Albumin 4.5 g/dL (3.5-5.0); Alkaline Phosphatase 101 U/L (40-110); Anion Gap 25 mmol/L (10-20); BHCG - Serum Negative (NEGATIVE); BUN (Urea Nitrogen) 22 mg/dL (7.0-18.7); Bilirubin, Total 0.6 mg/dL (0.2-1.2); Calc. Creatinine Clearance 0 mL/min (70-130); Calcium 9.8 mg/dL (7.8-10.44); Carbon Dioxide 19 mmol/L (22-29); Chloride 98 mmol/L (98-107); Estimated GFR 48; Globulin 3.3 g/dL (2.4-3.5); Glucose 144 mg/dL (70-105); Pregs Control Background? CLEAR/WHITE (CLR/WHITE); Pregs Control Bar Appear? YES (CONTROL BAR); Protein, Total 7.8 g/dL (6.0-8.3); Sodium 139 mmol/L (136-145)
[2022-07-22 18:06] LABS: Actual Bicarbonate (HCO3v) 23 mEq/L (22-28); Base Excess -0.8 mEq/L (-2.0 to +3.0); Calcium, Ionized (venous) 1.12 mmol/L (1.16-1.32); Chloride (VBG) 99 mmol/L (98-106); Hemoglobin (Hb) 14.4 g/dL (11.7-16.0); Potassium (VBG) 3.12 mmol/L (3.70-5.30); Sodium 137.2 mmol/L (133-146); pH (venous) 7.42 (7.32-7.43)
[2022-07-22] MEDS ORDERED: Potassium Chloride 20 MEQ TAB ONE (18:12)
== END 2022-07-22 19:52 | disposition home or self-care (01) ==
LOC: ERS 16:24
DX: R55 Syncope and collapse (principal); E87.6 Hypokalemia; I11.0 Hypertensive heart disease with heart failure; I50.9 Heart failure, unspecified; F17.210 Nicotine dependence, cigarettes, uncomplicated
CPT/HCPCS: 71275; 80053; 82805; 84484; 84703; 85025; 93005; Q9967

== ENCOUNTER 2022-07-23 22:51 | Emergency (ER) | payer BC ==
[2022-07-23 23:51] LABS: #Eosinphils 0.2 thou/uL (0.0-0.7); #Lymphocytes 1.6 thou/uL (1.20-3.40); %Basophils 0.4 % (0.0-1.0); %Eosinophils 2.5 % (0.0-10.0); %Lymphocytes 20.6 % (21.0-51.0); %Monocytes 12.5 % (0.0-10.0); Hemoglobin 13.5 g/dL (12.0-16.0); Mean Corpuscular HGB CONC 33.6 g/dL (32.0-36.0); Mean Corpuscular Hemoglobin 31.3 pg (27.0-31.0); Mean Platelet Volume 9.2 fL (7.4-10.4); Platelet Count 243 thou/uL (130-400); RBC Distribution Width 14.1 % (11.5-14.5); Red Blood Cell (RBC) Count 4.32 mill/uL (4.20-5.40); White Blood Cell (WBC) Count 7.8 thou/uL (4.8-10.8)
[2022-07-24 00:06] LABS: BHCG - Serum Negative (NEGATIVE); Pregs Control Background? CLEAR/WHITE (CLR/WHITE); Pregs Control Bar Appear? YES (CONTROL BAR)
[2022-07-24 00:19] LABS: AST (SGOT) 20 U/L (5-34); Anion Gap 23 mmol/L (10-20); Bilirubin, Total 0.5 mg/dL (0.2-1.2); Calcium 9.5 mg/dL (7.8-10.44); Carbon Dioxide 19 mmol/L (22-29); Chloride 103 mmol/L (98-107); Potassium 3.6 mmol/L (3.5-5.1); Protein, Total 7.2 g/dL (6.0-8.3); Sodium 141 mmol/L (136-145)
[2022-07-24 00:20] LABS: Albumin 4.2 g/dL (3.5-5.0)
[2022-07-24 00:22] LABS: Glucose 93 mg/dL (70-105)
[2022-07-24 00:25] LABS: Alkaline Phosphatase 92 U/L (40-110)
[2022-07-24 00:26] LABS: Calc. Creatinine Clearance 0 mL/min (70-130); Estimated GFR 39
[2022-07-24 00:27] LABS: BUN (Urea Nitrogen) 14 mg/dL (7.0-18.7)
[2022-07-24 00:28] LABS: ALT (SGPT) 11 U/L (8-55)
== END 2022-07-23 23:53 | disposition left against medical advice (07) ==
LOC: ERS 22:51
DX: Z53.21 Procedure and treatment not carried out due to patient leaving prior to being seen by health care provider (principal)
CPT/HCPCS: 36415; 36416; 80053; 84484; 84703; 85025; 93005

== ENCOUNTER 2023-07-12 09:35 | Outpatient (CLI) | payer BC | END 2023-07-12 09:36 | disposition home or self-care (01) | LOC: BICMRI 09:35 | PROVIDERS: ATTEND Internal Medicine Hospice and Palliative Medicine | DX: G60.3 Idiopathic progressive neuropathy (principal) | CPT/HCPCS: 72157; 82565 ==